=== PATIENT | male | born 1970 | race Caucasian/White ===

== ENCOUNTER 2018-09-09 19:09 | Emergency (ER) | payer MEDICAID ==
[~2018-09-09] VITALS: Ht 167.6 cm; Wt 66.0 kg
[~2018-09-09 19:09] MED LIST: CRUTCH USE; OXYACE5T; OXYACE5T PO
== END 2018-09-09 20:11 | disposition left against medical advice (07) ==
LOC: ER 19:09
DX: Z53.21 Procedure and treatment not carried out due to patient leaving prior to being seen by health care provider (principal); S71.151A Open bite, right thigh, initial encounter

== ENCOUNTER 2020-08-06 02:27 | Emergency (ER) | payer OTHER ==
[~2020-08-06] VITALS: Ht 175.3 cm; Wt 79.4 kg
[~2020-08-06 02:27] MED LIST changes: +Bactrim Ds Tab1 EACH PO; +Keflex500 MG PO
== END 2020-08-06 03:50 | disposition home or self-care (01) ==
LOC: ER 02:27
DX: S60.212A Contusion of left wrist, initial encounter (principal); S09.90XA Unspecified injury of head, initial encounter; F17.200 Nicotine dependence, unspecified, uncomplicated; W27.8XXA Contact with other nonpowered hand tool, initial encounter
CPT/HCPCS: 29125; 70450; 72125; 73030; 73110; 99284-25; A9270; L3917

== ENCOUNTER → 2020-12-09 | Outpatient (CLI) | payer OTHER | LOC: LAB SHORT 18:15 → LAB 18:15 | DX: L02.419 Cutaneous abscess of limb, unspecified (principal) | CPT/HCPCS: 87070; 87075; 87205 ==

== ENCOUNTER → 2020-12-15 | Outpatient (CLI) | payer OTHER | END | disposition home or self-care (01) | LOC: LAB SHORT 18:26 → LAB 18:26 | DX: L02.413 Cutaneous abscess of right upper limb (principal) | CPT/HCPCS: 87070; 87075; 87205 ==

== ENCOUNTER → 2021-05-13 | Outpatient (CLI) | payer OTHER | LOC: LAB 13:17 → LAB SHORT 13:17 | DX: L02.414 Cutaneous abscess of left upper limb (principal) | CPT/HCPCS: 87070; 87075; 87205 ==

== ENCOUNTER → 2021-10-06 | Outpatient (CLI) | payer OTHER | END | disposition home or self-care (01) | LOC: LAB SHORT 10:24 → LAB 10:24 | DX: L02.414 Cutaneous abscess of left upper limb (principal); L03.114 Cellulitis of left upper limb | CPT/HCPCS: 87070; 87075; 87205 ==

== ENCOUNTER 2023-09-12 22:15 | Inpatient (IN) | payer OTHER ==
[~2023-09-12] VITALS: Ht 160 cm; Wt 81.5 kg
[2023-09-13] MEDS ORDERED: Ketorolac Tromethamine 30mg Vial IV ONE (00:20)
[2023-09-13] MEDS ORDERED: Ketorolac Tromethamine 30mg Vial IM ONE (00:45)
[2023-09-13] MEDS ORDERED: LORazepam 2 MG/ML 1ML Injection IM ONE (01:05)
[2023-09-13 02:05] LABS: BASOPHILS ABSOLUTE AUTO 0.06 K/mm3 (0.00-0.23); BASOPHILS PERCENT AUTO 1 % (0-2); EOSINOPHILS ABSOLUTE AUTO 0.01 K/mm3 (0.00-0.68); EOSINOPHILS PERCENT AUTO 0 % (0-6); Hematocrit 41.8 % (37.0-53.0); IMMATURE GRAN ABSOLUTE AUTO 0.08 K/mm3 (0.00-0.10); IMMATURE GRAN PERCENT AUTO 1 % (0-1); LYMPHOCYTES ABSOLUTE AUTO 0.86 K/mm3 (0.84-5.20); LYMPHOCYTES PERCENT AUTO 7 % (21-46); MONOCYTES ABSOLUTE AUTO 0.39 K/mm3 (0.16-1.47); MONOCYTES PERCENT AUTO 3 % (4-13); Mean Corpuscular HGB 28.4 pg (26.0-34.0); Mean Corpuscular HGB Conc 33.5 g/dL (31.5-36.5); Mean Corpuscular Volume 85 fL (80-100); Mean Platelet Volume 9.4 fL (9.1-12.4); NEUTROPHILS ABSOLUTE AUTO 10.31 K/mm3 (1.96-9.15); NEUTROPHILS PERCENT AUTO 88 % (41-73); Platelet Count 424 K/mm3 (150-400); RDW Coefficient Variation 14.1 % (11.7-14.2); RDW Standard Deviation 43.7 fL (35.1-46.3); Red Blood Cell Count 4.93 M/mm3 (4.30-5.90); White Blood Cell Count 11.71 K/mm3 (4.00-11.30)
[2023-09-13 02:15] LABS: Albumin, Blood 3.5 g/dL (3.4-5.0); Albumin/Globulin Ratio 0.9 (0.8-1.8); Bilirubin, Total 0.3 mg/dL (0.1-1.0); Bun/Creatinine Ratio 31.3 (12.0-20.0); Calcium, Blood 9.2 mg/dL (8.5-10.1); Creatinine, Blood 0.7 mg/dL (0.60-1.20); Potassium, Blood 3.6 mmol/L (3.5-5.5); Total Protein, Blood 7.5 g/dL (6.4-8.2)
[2023-09-13] MEDS ORDERED: Haloperidol Lactate Inj. 5 MG/ML Injection IM ONE (02:40)
[2023-09-13] MEDS ORDERED: CefTRIAXone Sodium 1,000 MG in NS 50 ML IV ONE (05:20)
[2023-09-13] MEDS ORDERED: NS 1,000 ML IV SCH ×2 (05:20)
[2023-09-13] MEDS ORDERED: HYDROmorphone HCl/Pf 1MG SYR IV ONE (05:20)
[2023-09-13] MEDS ORDERED: Naloxone HCl 0.4MG / ML 1ML Vial IV PRN (06:20)
[2023-09-13] MEDS ORDERED: OxyCODONE HCL 5 MG TAB PO PRN (06:25)
[2023-09-13] MEDS ORDERED: Acetaminophen 325 MG TABLET PO PRN (06:25)
[2023-09-13] MEDS ORDERED: Ondansetron HCl 2 MG / ML 2ML Vial IV PRN (06:25)
[2023-09-13] MEDS ORDERED: MetroNIDAZOLE 500MG/NS 100 ml 100 ML IV SCH (06:30)
[2023-09-13] MEDS ORDERED: Lactated Ringer's 1,000 ML IV SCH (07:00)
[2023-09-13] MEDS ORDERED: Lactobacil 2-S.Thermo-Bifido 1 1 Cap PO SCH (09:00)
[2023-09-13] MEDS ORDERED: Docusate Sodium 100 MG Cap PO SCH (09:00)
[2023-09-13] MEDS ORDERED: Haloperidol Lactate Inj. 5 MG/ML Injection IV ONE (09:40)
[2023-09-13 09:57] LABS: Source, Urine Straight Cath
[2023-09-13 10:00] LABS: Appearance, Urine Clear (Clear); Bilirubin, Urine Neg (Neg); Blood, Urine 1+ (Neg); Color, Urine Yellow (P-Yellow); Glucose Qualitative, Urine Neg (Neg); Ketones, Urine 3+ (Neg); Leukocyte Esterase, Urine Neg (Neg); Nitrite, Urine Neg (Neg); Protein, Urine 1+ (Neg); Specific Gravity, Urine 1.015 (1.003-1.022); Urobilinogen, Urine 1+ (Normal); pH, Urine 6.5 (5.0-8.0)
[2023-09-13 10:06] LABS: Bacteria Rare /hpf; Mucus Light (0-Heavy); Squamous Epithelial Cells Rare /hpf (Few); White Blood Cells, Urine 0-2 /hpf (0-5)
[2023-09-13 11:26] VITALS: BP 127/75
--- NOTE | 2023-09-13 11:41 | NUR ---
PT ARRIVED TO THE MEDICAL FLOOR FROM THE ER VIA GURNEY. THE PT IS MOSTLY NON VERBAL AT THIS TIME DOES PERIODICALLY ANSWER YES OR NO. THE IS ORIENTED TO THE ROOM CALL SYSTEM AND LAYOUT. PTS SKIN LOOKS CLEAR. PT APPEARS TO BE BREATHING EASILY
[2023-09-13 11:42] LABS: U Amphetamine Screen DETECTED; U Benzodiazapine Screen DETECTED; U Buprenorphine Screen DETECTED; U Cannabinoids Screen DETECTED; U Methamphetamine Screen DETECTED; U Opiates Screen DETECTED
[2023-09-13 11:43] LABS: U Barbituate Screen Not Detected; U Cocaine Screen Not Detected; U Methadone Screen Not Detected; U Oxycodone Screen Not Detected; U Phencyclidine Screen Not Detected
[2023-09-13 15:11] VITALS: BP 110/58
--- NOTE | 2023-09-13 18:06 | NUR ---
PT IS ALERT, ANSWERING SOME QUESTIONS, PT WAKENS, MOANS AND THRASHES IN THE BED, THEN FALLS BACK TO SLEEP, THE PT CONTINUES TO REPORT THAT HE IS VERY THIRSTY. THE PT HAS BEEN DRINKING LARGE VOLUMES OF WATER. THE PT MOANS IF HE IS IN PAIN, HOWEVER, WHEN ASKED HE DENIES PAIN. CALL LIGHT IN REACH, BED IN THE LOW POSITION, BED ALARM ON
[2023-09-13] MEDS ORDERED: Haloperidol Lactate Inj. 5 MG/ML Injection IM PRN (18:40)
[2023-09-13 20:49] VITALS: BP 120/71
[2023-09-13] MEDS ORDERED: Ketorolac Tromethamine 15mg Vial IV PRN (22:35)
[2023-09-14] MEDS ORDERED: NS 250 ML IV SCH (04:00)
--- NOTE | 2023-09-14 05:25 | NUR ---
SHIFT SUMMARY: PATIENT RESTLESS AND THRASHING LIMBS IN BED, WHEN QUESTIONED STATED, "I'M SO HOT". FAN POSITIONED TOWARD HIS FACE, ICE WATER GIVEN. PATIENT DRANK THREE LARGE CUPS OF ICE WATER TONIGHT. TWO DOSES OF TORADOL GIVEN. CONTINUES WITH IV ABX FLAGYL AND ROCEPHIN. SEEMS CONFUSED, BUT WILL ANSWER QUESTIONS CLEARLY AT TIMES, ONLY A FEW WORDS. LOTS OF BOWEL MOVEMENT DURING THIS SHIFT. IV ON RIGHT ARM, PATENT. RASH TO BRIEF AREA, NOT WORSENING. REMAINS INCONTINENT OF BLADDER AND BOWEL.
[2023-09-14 05:26] VITALS: BP 139/71
[2023-09-14] MEDS ORDERED: CefTRIAXone Sodium 1,000 MG in NS 100 ML IV SCH (06:00)
[2023-09-14 06:23] LABS: BASOPHILS ABSOLUTE AUTO 0.08 K/mm3 (0.00-0.23); BASOPHILS PERCENT AUTO 1 % (0-2); EOSINOPHILS ABSOLUTE AUTO 0.03 K/mm3 (0.00-0.68); EOSINOPHILS PERCENT AUTO 0 % (0-6); Hematocrit 43.2 % (37.0-53.0); Hemoglobin 14.8 g/dL (13.5-17.5); IMMATURE GRAN ABSOLUTE AUTO 0.04 K/mm3 (0.00-0.10); IMMATURE GRAN PERCENT AUTO 0 % (0-1); LYMPHOCYTES ABSOLUTE AUTO 2.06 K/mm3 (0.84-5.20); LYMPHOCYTES PERCENT AUTO 20 % (21-46); MONOCYTES ABSOLUTE AUTO 1.16 K/mm3 (0.16-1.47); MONOCYTES PERCENT AUTO 12 % (4-13); Mean Corpuscular HGB 28.6 pg (26.0-34.0); Mean Corpuscular HGB Conc 34.3 g/dL (31.5-36.5); Mean Corpuscular Volume 83 fL (80-100); Mean Platelet Volume 9.5 fL (9.1-12.4); NEUTROPHILS ABSOLUTE AUTO 6.72 K/mm3 (1.96-9.15); NEUTROPHILS PERCENT AUTO 67 % (41-73); Platelet Count 283 K/mm3 (150-400); RDW Coefficient Variation 13.7 % (11.7-14.2); RDW Standard Deviation 41.7 fL (35.1-46.3); Red Blood Cell Count 5.18 M/mm3 (4.30-5.90); White Blood Cell Count 10.09 K/mm3 (4.00-11.30)
[2023-09-14 06:30] LABS: International Normalized Ratio 1.07; Prothrombin Time Results 11.4 Sec (9.7-11.5)
[2023-09-14 06:40] LABS: Albumin/Globulin Ratio 0.9 (0.8-1.8); Bilirubin, Total 1.1 mg/dL (0.1-1.0); Bun/Creatinine Ratio 27.5 (12.0-20.0); Calcium, Blood 8.7 mg/dL (8.5-10.1); Creatinine, Blood 0.65 mg/dL (0.60-1.20); Globulin, Blood 3.4 g/dL (2.2-4.0); Magnesium, Blood 1.9 mg/dL (1.6-2.4); Potassium, Blood 3.6 mmol/L (3.5-5.5); Total Protein, Blood 6.4 g/dL (6.4-8.2)
[2023-09-14 07:38] VITALS: BP 123/69
[2023-09-14] MEDS ORDERED: OLANZapine 10 MG Vial IM PRN (14:50)
[2023-09-14] MEDS ORDERED: Bisacodyl 10 MG Supp PR PRN (15:00)
[2023-09-14] MEDS ORDERED: NS 250 ML IV PRN (16:15)
[2023-09-14 16:57] VITALS: BP 147/95
--- NOTE | 2023-09-14 18:29 | NUR ---
SHIFT SUMMARY: PT ALERT, ORIENTED TO SELF AND SITUATION; RESTLESS AND COOPERATIVE WITH CARE. MEDICATED FOR PAIN AND ANXIETY PER EMAR; AFTER ZYPREXA IM, PT WAS ABLE TO REST MUCH MORE COMFORTABLY. TELE IN PLACE; PER TELE MONITOR, PT EXHIBITED [place] RHYTHM, WHICH SPONTANEOUSLY CONVERTED TO SINUS RHYTHM. PT CONTINUES INCONTINENT OF BOWEL AND BLADDER; SUPPOSITORY GIVEN FOR POSSIBLE IMPACTED STOOL; AWAITING RESULTS. PT HAS HAD GOOD ORAL INTAKE THIS SHIFT; DIET ADVANCED TO FULL LIQUID AT DINNER; PT TOLERATED WELL. PT CONTINUES TO CALL OUT FOR PHONE TO CALL MOTHER. CT OF HEAD COMPLETED THIS SHIFT; NO ACUTE INTRACRANIAL ABNORMALITY DETECTED. IV ABX CONTINUING. WCTM.
[2023-09-14 19:16] VITALS: BP 138/53
[2023-09-15 04:04] VITALS: BP 131/63
--- NOTE | 2023-09-15 04:46 | NUR ---
SHIFT SUMMARY PATIENT HAD NO ACUTE CHANGES. MOSTLY SOMNOLENT T/O SHIFT. AXO X2 AND BEDREST. MOANS ON/OFF. PIV REMAINS INTACT. IV ABX INFUSED. NO S/SX OF CHEST PAIN, SOB, AND N/V. VSS/AFEBRILE. NO AGITATION OBSERVED. CALL LIGHT IN REACH. BED IN LOWEST POSITION. WILL CONTINUE TO MONITOR UNTIL DAY SHIFT NURSE ASSUMES CARE.
[2023-09-15 07:10] VITALS: BP 148/75
--- NOTE | 2023-09-15 12:21 | NUR ---
REPORT RECEIVED VERIFIED PT YELLING OUT BUT QUICKLY FALLING ASLEEP. VSS WITH A LITTLE TEMP AND TYLENOL GIVEN. PT CALLED FAMILY AND WANTS TO GO HOME. DR WEINER AWARE AND GAVE DC ORDER FOR PT. PT WOULD NOT WAIT FOR DC ORDERS SO LEFT WITH FAMILY ANYWAYS. IV DCED TELE DCED PT TAKEN BY [facility] VIA WHEEL CHAIR.
== END 2023-09-15 12:10 | disposition left against medical advice (07) | DRG 444 ==
LOC: ER 22:15 → MEDS 09-13 06:19
PROVIDERS: Emergency Medicine; ADMIT Student in an Organized Health Care Education/Training Program
DX: K80.20 Calculus of gallbladder without cholecystitis without obstruction (principal); G92.8 Other toxic encephalopathy; K52.89 Other specified noninfective gastroenteritis and colitis; I10 Essential (primary) hypertension; M41.9 Scoliosis, unspecified; G89.4 Chronic pain syndrome; T43.625A Adverse effect of amphetamines, initial encounter; T42.4X5A Adverse effect of benzodiazepines, initial encounter; T40.2X5A Adverse effect of other opioids, initial encounter; F17.210 Nicotine dependence, cigarettes, uncomplicated; E86.0 Dehydration; K59.00 Constipation, unspecified; Z53.29 Procedure and treatment not carried out because of patient's decision for other reasons; Z78.1 Physical restraint status
CPT/HCPCS: 36415; 70450; 74177; 76705; 80053; 81001; 82947; 83605; 83735; 85025; 85610; 96365-59; 96372-59; 96375; 99285-25; A9270; J0696; J1170; J1630; J1885; J2060; J7030; J7050; J7120; Q9967

== ENCOUNTER 2024-11-24 20:45 | Emergency (ER) | payer MEDICARE, OTHER ==
[~2024-11-24] VITALS: Ht 172.7 cm; Wt 90.7 kg
[2024-11-24 20:51] VITALS: BP 146/84
[2024-11-24] MEDS ORDERED: Polyethylene Glycol 3350 17 gm PO ONE (22:40)
== END 2024-11-24 23:02 | disposition home or self-care (01) ==
LOC: ER 20:45
DX: Z46.6 Encounter for fitting and adjustment of urinary device (principal); F17.210 Nicotine dependence, cigarettes, uncomplicated
CPT/HCPCS: 99283; A9270

== ENCOUNTER 2024-12-21 05:03 | Emergency (ER) | payer OTHER, MEDICARE ==
[~2024-12-21] VITALS: Ht 172.7 cm; Wt 90.7 kg
[2024-12-21 05:47] LABS: BASOPHILS ABSOLUTE AUTO 0.09 K/mm3 (0.00-0.23); BASOPHILS PERCENT AUTO 1 % (0-2); EOSINOPHILS ABSOLUTE AUTO 0.28 K/mm3 (0.00-0.68); EOSINOPHILS PERCENT AUTO 4 % (0-6); Hematocrit 38.4 % (37.0-53.0); Hemoglobin 12.6 g/dL (13.5-17.5); IMMATURE GRAN ABSOLUTE AUTO 0.02 K/mm3 (0.00-0.10); IMMATURE GRAN PERCENT AUTO 0 % (0-1); LYMPHOCYTES ABSOLUTE AUTO 1.76 K/mm3 (0.84-5.20); LYMPHOCYTES PERCENT AUTO 24 % (21-46); MONOCYTES ABSOLUTE AUTO 0.76 K/mm3 (0.16-1.47); MONOCYTES PERCENT AUTO 10 % (4-13); Mean Corpuscular HGB Conc 32.8 g/dL (31.5-36.5); Mean Corpuscular Volume 87 fL (80-100); NEUTROPHILS ABSOLUTE AUTO 4.41 K/mm3 (1.96-9.15); NEUTROPHILS PERCENT AUTO 60 % (41-73); NRBC ABSOLUTE 0.00 K/mm3 (0.00-0.02); NRBC Auto 0.0 /100 WBC (0.0-0.2); Platelet Count 299 K/mm3 (150-400); RDW Coefficient Variation 15.7 % (11.7-14.2); RDW Standard Deviation 50.1 fL (35.1-46.3)
[2024-12-21 06:21] LABS: Alanine Aminotransfer (ALT/SGP 28.0 U/L (12-78); Albumin, Blood 3.0 g/dL (3.4-5.0); Albumin/Globulin Ratio 0.7 (0.8-1.8); Anion Gap 6.0 mmol/L (3-11); Aspartate Aminotrans (AST/SGOT 17.0 U/L (12-37); Bilirubin, Total 0.5 mg/dL (0.1-1.0); Blood Urea Nitrogen 12.0 mg/dL (8-24); CO2, Blood 29.0 mmol/L (21-32); Calcium, Blood 8.5 mg/dL (8.5-10.1); Chloride, Blood 106.0 mmol/L (98-108); Creatinine, Blood 0.76 mg/dL (0.60-1.20); Globulin, Blood 4.3 g/dL (2.2-4.0); Glucose, Blood 88.0 mg/dL (70-99); Potassium, Blood 3.9 mmol/L (3.5-5.5); Sodium, Blood 137.0 mmol/L (136-145); Total Protein, Blood 7.3 g/dL (6.4-8.2)
[2024-12-21 06:25] LABS: Source, Urine Foley catheter
[2024-12-21 06:34] LABS: Bilirubin, Urine Neg (Neg); Color, Urine Yellow (P-Yellow); Glucose Qualitative, Urine Neg (Neg); Ketones, Urine Neg (Neg); Leukocyte Esterase, Urine 1+ (Neg); Protein, Urine Neg (Neg); Specific Gravity, Urine 1.015 (1.003-1.022); Urobilinogen, Urine NORM (Normal)
[2024-12-21] MEDS ORDERED: Ketorolac Tromethamine 30mg Vial IV ONE (06:40)
[2024-12-21] MEDS ORDERED: Trimethoprim/Sulfamethoxazole DS Tab PO ONE (09:25)
[2024-12-21] MEDS ORDERED: SULTRIDS PO (09:27)
[2024-12-21 09:54] VITALS: BP 130/87
== END 2024-12-21 09:55 | disposition home or self-care (01) ==
LOC: ER 05:03
PROVIDERS: Emergency Medicine
DX: S92.522A Displaced fracture of middle phalanx of left lesser toe(s), initial encounter for closed fracture (principal); T83.511A Infection and inflammatory reaction due to indwelling urethral catheter, initial encounter; N12 Tubulo-interstitial nephritis, not specified as acute or chronic; N39.0 Urinary tract infection, site not specified; F17.210 Nicotine dependence, cigarettes, uncomplicated; V86.56XA Driver of dirt bike or motor/cross bike injured in nontraffic accident, initial encounter
CPT/HCPCS: 73660; 76770; 80053; 81001; 83690; 85025; 87077; 87086; 87186; 99284-25; A9270

== ENCOUNTER 2025-01-30 13:50 | Emergency (ER) | payer MEDICARE ==
[~2025-01-30] VITALS: Ht 175.3 cm; Wt 90.7 kg
[~2025-01-30 13:50] MED LIST changes: +SULTRIDS PO
[2025-01-30 14:10] VITALS: BP 142/91
[2025-01-30 15:16] LABS: Source, Urine Foley catheter
[2025-01-30 15:35] LABS: Bilirubin, Urine Neg (Neg); Glucose Qualitative, Urine Neg (Neg); Ketones, Urine Neg (Neg); Leukocyte Esterase, Urine Neg (Neg); Protein, Urine Neg (Neg); Specific Gravity, Urine 1.010 (1.003-1.022); Urobilinogen, Urine NORM (Normal)
[2025-01-30 15:42] LABS: BASOPHILS ABSOLUTE AUTO 0.09 K/mm3 (0.00-0.23); BASOPHILS PERCENT AUTO 1 % (0-2); EOSINOPHILS ABSOLUTE AUTO 0.40 K/mm3 (0.00-0.68); EOSINOPHILS PERCENT AUTO 5 % (0-6); Hematocrit 33.9 % (37.0-53.0); Hemoglobin 11.1 g/dL (13.5-17.5); IMMATURE GRAN ABSOLUTE AUTO 0.02 K/mm3 (0.00-0.10); IMMATURE GRAN PERCENT AUTO 0 % (0-1); LYMPHOCYTES ABSOLUTE AUTO 1.34 K/mm3 (0.84-5.20); LYMPHOCYTES PERCENT AUTO 18 % (21-46); MONOCYTES ABSOLUTE AUTO 0.76 K/mm3 (0.16-1.47); MONOCYTES PERCENT AUTO 10 % (4-13); Mean Corpuscular HGB Conc 32.7 g/dL (31.5-36.5); Mean Corpuscular Volume 89 fL (80-100); NEUTROPHILS ABSOLUTE AUTO 5.01 K/mm3 (1.96-9.15); NEUTROPHILS PERCENT AUTO 66 % (41-73); NRBC ABSOLUTE 0.00 K/mm3 (0.00-0.02); NRBC Auto 0.0 /100 WBC (0.0-0.2); Platelet Count 340 K/mm3 (150-400); RDW Coefficient Variation 15.0 % (11.7-14.2); RDW Standard Deviation 49.1 fL (35.1-46.3)
[2025-01-30 15:56] LABS: Alanine Aminotransfer (ALT/SGP 31.0 U/L (12-78); Albumin, Blood 3.4 g/dL (3.4-5.0); Albumin/Globulin Ratio 0.9 (0.8-1.8); Anion Gap 9.0 mmol/L (3-11); Aspartate Aminotrans (AST/SGOT 20.0 U/L (12-37); Bilirubin, Total 0.5 mg/dL (0.1-1.0); Blood Urea Nitrogen 19.0 mg/dL (8-24); CO2, Blood 29.0 mmol/L (21-32); Calcium, Blood 8.7 mg/dL (8.5-10.1); Chloride, Blood 108.0 mmol/L (98-108); Creatinine, Blood 2.29 mg/dL (0.60-1.20); Globulin, Blood 3.9 g/dL (2.2-4.0); Glucose, Blood 104.0 mg/dL (70-99); Potassium, Blood 3.9 mmol/L (3.5-5.5); Sodium, Blood 142.0 mmol/L (136-145); Total Protein, Blood 7.3 g/dL (6.4-8.2)
[2025-01-30 15:59] LABS: Color, Urine Pale Yellow (P-Yellow)
[2025-01-30] MEDS ORDERED: Flomax0.4 MG PO (16:20)
== END 2025-01-30 17:06 | disposition home or self-care (01) ==
LOC: ER 13:50
PROVIDERS: Emergency Medicine
DX: R33.9 Retention of urine, unspecified (principal); I10 Essential (primary) hypertension; F17.210 Nicotine dependence, cigarettes, uncomplicated; Z79.899 Other long term (current) drug therapy
CPT/HCPCS: 51702; 51798; 80053; 81003; 85025

== ENCOUNTER 2025-03-29 18:44 | Inpatient (IN) | payer MEDICARE ==
[~2025-03-29] VITALS: Ht 172.7 cm; Wt 85.6 kg
[~2025-03-29 18:44] MED LIST changes: -DOXY100 PO; -METO25 PO; -VISBIOME 112.51 EACH PO
[2025-03-29 19:45] LABS: BASOPHILS ABSOLUTE AUTO 0.05 K/mm3 (0.00-0.23); BASOPHILS PERCENT AUTO 0 % (0-2); EOSINOPHILS ABSOLUTE AUTO 0.03 K/mm3 (0.00-0.68); EOSINOPHILS PERCENT AUTO 0 % (0-6); Hematocrit 32.7 % (37.0-53.0); Hemoglobin 10.8 g/dL (13.5-17.5); IMMATURE GRAN ABSOLUTE AUTO 0.22 K/mm3 (0.00-0.10); IMMATURE GRAN PERCENT AUTO 1 % (0-1); LYMPHOCYTES ABSOLUTE AUTO 0.84 K/mm3 (0.84-5.20); LYMPHOCYTES PERCENT AUTO 5 % (21-46); MONOCYTES ABSOLUTE AUTO 1.16 K/mm3 (0.16-1.47); MONOCYTES PERCENT AUTO 6 % (4-13); Mean Corpuscular HGB Conc 33.0 g/dL (31.5-36.5); Mean Corpuscular Volume 83 fL (80-100); NEUTROPHILS ABSOLUTE AUTO 16.23 K/mm3 (1.96-9.15); NEUTROPHILS PERCENT AUTO 88 % (41-73); NRBC ABSOLUTE 0.00 K/mm3 (0.00-0.02); NRBC Auto 0.0 /100 WBC (0.0-0.2); Platelet Count 591 K/mm3 (150-400); RDW Coefficient Variation 16.1 % (11.7-14.2); RDW Standard Deviation 48.9 fL (35.1-46.3)
[2025-03-29 20:16] LABS: Source, Urine Clean Catch
[2025-03-29 20:18] LABS: Bilirubin, Urine Neg (Neg); Color, Urine Yellow (P-Yellow); Glucose Qualitative, Urine Neg (Neg); Ketones, Urine Neg (Neg); Leukocyte Esterase, Urine 3+ (Neg); Protein, Urine 3+ (Neg); Specific Gravity, Urine 1.015 (1.003-1.022); Urobilinogen, Urine NORM (Normal)
[2025-03-29 20:33] LABS: Alanine Aminotransfer (ALT/SGP 25 U/L (12-78); Albumin, Blood 2.2 g/dL (3.4-5.0); Albumin/Globulin Ratio 0.4 (0.8-1.8); Anion Gap Unable to Calculate mmol/L (3-11); Aspartate Aminotrans (AST/SGOT 14 U/L (12-37); Bilirubin, Total 0.6 mg/dL (0.1-1.0); Blood Urea Nitrogen 59 mg/dL (8-24); CO2, Blood 36 mmol/L (21-32); Calcium, Blood 8.4 mg/dL (8.5-10.1); Chloride, Blood 103 mmol/L (98-108); Creatinine, Blood 3.53 mg/dL (0.60-1.20); Globulin, Blood 6.1 g/dL (2.2-4.0); Glucose, Blood 119 mg/dL (70-99); Potassium, Blood 3.9 mmol/L (3.5-5.5); Sodium, Blood 133 mmol/L (136-145); Total Protein, Blood 8.3 g/dL (6.4-8.2)
[2025-03-29 20:38] LABS: White Blood Cells, Urine TNTC /hpf (0-5)
[2025-03-29 20:39] LABS: Red Blood Cells, Urine 25-50 /hpf (0-2)
[2025-03-29] MEDS ORDERED: CefTRIAXone Sodium 1,000 MG in NS 100 ML IV ONE (20:45)
[2025-03-29] MEDS ORDERED: Lidocaine 2% Jelly Uro-Jet UR ONE (20:45)
[2025-03-29] MEDS ORDERED: OxyCODONE 5 mg/Acetamin 325 mg TABLET PO PRN (21:30)
[2025-03-29] MEDS ORDERED: FLU VACC TS2025-26(6MOS UP)/PF 45 MCG/0.5 ML SYRINGE IM SCH (21:35)
[2025-03-29 21:39] LABS: Magnesium, Blood 2.7 mg/dL (1.6-2.4)
[2025-03-29] MEDS ORDERED: LORazepam 2 MG/ML 1ML Injection IV PRN (21:40)
[2025-03-29 23:30] VITALS: BP 113/65
[2025-03-29 23:35] LABS: pH Blood Venous 7.48 (7.34-7.37)
[2025-03-30 00:04] LABS: U Amphetamine Screen DETECTED; U Barbiturate Screen Not Detected; U Benzodiazapine Screen Not Detected; U Buprenorphine Screen Not Detected; U Cannabinoids Screen Not Detected; U Cocaine Screen Not Detected; U Methadone Screen Not Detected; U Methamphetamine Screen DETECTED; U Opiates Screen Not Detected; U Oxycodone Screen Not Detected; U Phencyclidine Screen Not Detected
[2025-03-30 04:00] VITALS: BP 120/64
[2025-03-30 04:36] LABS: BASOPHILS ABSOLUTE AUTO 0.06 K/mm3 (0.00-0.23); BASOPHILS PERCENT AUTO 0 % (0-2); EOSINOPHILS ABSOLUTE AUTO 0.11 K/mm3 (0.00-0.68); EOSINOPHILS PERCENT AUTO 1 % (0-6); Hematocrit 27.0 % (37.0-53.0); Hemoglobin 8.8 g/dL (13.5-17.5); IMMATURE GRAN ABSOLUTE AUTO 0.21 K/mm3 (0.00-0.10); IMMATURE GRAN PERCENT AUTO 1 % (0-1); LYMPHOCYTES ABSOLUTE AUTO 1.74 K/mm3 (0.84-5.20); LYMPHOCYTES PERCENT AUTO 11 % (21-46); MONOCYTES ABSOLUTE AUTO 1.68 K/mm3 (0.16-1.47); MONOCYTES PERCENT AUTO 10 % (4-13); Mean Corpuscular HGB Conc 32.6 g/dL (31.5-36.5); Mean Corpuscular Volume 84 fL (80-100); NEUTROPHILS ABSOLUTE AUTO 12.66 K/mm3 (1.96-9.15); NEUTROPHILS PERCENT AUTO 77 % (41-73); NRBC ABSOLUTE 0.00 K/mm3 (0.00-0.02); NRBC Auto 0.0 /100 WBC (0.0-0.2); Platelet Count 415 K/mm3 (150-400); RDW Coefficient Variation 16.1 % (11.7-14.2); RDW Standard Deviation 49.5 fL (35.1-46.3)
[2025-03-30 04:57] LABS: Anion Gap 10.0 mmol/L (3-11); Blood Urea Nitrogen 39.0 mg/dL (8-24); CO2, Blood 24.0 mmol/L (21-32); Calcium, Blood 7.8 mg/dL (8.5-10.1); Chloride, Blood 106.0 mmol/L (98-108); Creatinine, Blood 3.03 mg/dL (0.60-1.20); Glucose, Blood 110.0 mg/dL (70-99); Magnesium, Blood 2.5 mg/dL (1.6-2.4); Potassium, Blood 3.7 mmol/L (3.5-5.5); Sodium, Blood 136.0 mmol/L (136-145)
[2025-03-30 07:48] VITALS: BP 126/69
[2025-03-30] MEDS ORDERED: Enoxaparin 30 MG/0.3 ML SYR SC SCH (09:00)
[2025-03-30] MEDS ORDERED: Lactobacil 2-S.Thermo-Bifido 1 1 Cap PO SCH (09:00)
--- NOTE | 2025-03-30 11:18 | NUR ---
AM NOTES; THIS MORNING PT WAS SOAKING WET FROM CATHETER LEAK. PT WAS OFFERED TO GET IN THE SHOWER, PT REPORTS THAT IT WAS SLIGHTLY CLAMPED LAST NIGHT ITS CAUSING PAIN DUE TO FAST URINARY DRAIN, CATHETER TUBING WAS CHECKED AND WAS UNCLAMPED, WHEN PT GOT BACK IN BED AFTER SHOWER PT WAS STILL LEAKING, PT WAS BLADDER SCANNED AND SHOWED 475MLS URINE IN THE BLADDER. CATHETER WAS IRRIGATED WITH 10 NS AND URINE ABLE TO DRAIN AGAIN. NO OTHER ISSUES AT THSI TIME. VITALS HAS BEEN STABLE. PT HAS AMBUALTED VIA WALKER SBA TO THE BATHROOM. CALLS APPROPRIATELY. WILL CONTINUE TO MONITOR
[2025-03-30 11:42] VITALS: BP 119/68
[2025-03-30 15:20] VITALS: BP 111/64
--- NOTE | 2025-03-30 18:26 | NUR ---
PT SUMMARY; SEE PREVIOUS NOTE. NO CURRENT ISSUES WITH PARKER, PT HAS BEEN DRINKING WATER AND JUICE OFTEN PT AHD ALMOST 5L URINE OUT FOR THE SHIFT, MD AWARE. PT POSSIBLY WIHTDRAWING FROM METH, PT OCCASIONALLY RESTLESS IN BED, CONSISTENTLY ASKING FOR SNACKS AND HAS BEEN NAPPING IN BED MOST OF THE SHIFT. PT STARTED ON IV FLUIDS AT 100MLS/HR WELL. ULTRASOUND OF RIGHT LEG CURRENTLY BEING DONE. PAIN MEDS PER EMAR. VITALS HAS BEEN STABLE. AFEBRILE. LAB CALLED FOR GRAM NEGATIVE BACILLI GROWING ON BLOOD CULTURES, MD AWARE NO NEW ORDERS AT THIS TIME. PT TO CONTINUE ON CURRENT IV ABO. PT HAS BEEN COOEPRATIVE WITH CARES. PLEASANT AND COHERENT. NO OTHER ISSUES REPORTED WILL REPORT TO ONOCMING SHIFT
[2025-03-30 20:14] VITALS: BP 136/87
[2025-03-30] MEDS ORDERED: CefTRIAXone Sodium 1,000 MG in NS 100 ML IV SCH (21:00)
[2025-03-30 23:56] VITALS: BP 136/77
[2025-03-31 03:43] LABS: BASOPHILS ABSOLUTE AUTO 0.08 K/mm3 (0.00-0.23); BASOPHILS PERCENT AUTO 1 % (0-2); EOSINOPHILS ABSOLUTE AUTO 0.14 K/mm3 (0.00-0.68); EOSINOPHILS PERCENT AUTO 1 % (0-6); Hematocrit 31.1 % (37.0-53.0); Hemoglobin 10.5 g/dL (13.5-17.5); IMMATURE GRAN ABSOLUTE AUTO 0.32 K/mm3 (0.00-0.10); IMMATURE GRAN PERCENT AUTO 2 % (0-1); LYMPHOCYTES ABSOLUTE AUTO 1.81 K/mm3 (0.84-5.20); LYMPHOCYTES PERCENT AUTO 11 % (21-46); MONOCYTES ABSOLUTE AUTO 1.26 K/mm3 (0.16-1.47); MONOCYTES PERCENT AUTO 7 % (4-13); Mean Corpuscular HGB Conc 33.8 g/dL (31.5-36.5); Mean Corpuscular Volume 84 fL (80-100); NEUTROPHILS ABSOLUTE AUTO 13.48 K/mm3 (1.96-9.15); NEUTROPHILS PERCENT AUTO 79 % (41-73); NRBC ABSOLUTE 0.00 K/mm3 (0.00-0.02); NRBC Auto 0.0 /100 WBC (0.0-0.2); Platelet Count 443 K/mm3 (150-400); RDW Coefficient Variation 15.9 % (11.7-14.2); RDW Standard Deviation 48.5 fL (35.1-46.3)
[2025-03-31 04:27] LABS: Anion Gap 10.0 mmol/L (3-11); Blood Urea Nitrogen 42.0 mg/dL (8-24); CO2, Blood 27.0 mmol/L (21-32); Calcium, Blood 7.7 mg/dL (8.5-10.1); Chloride, Blood 106.0 mmol/L (98-108); Creatinine, Blood 2.21 mg/dL (0.60-1.20); Glucose, Blood 108.0 mg/dL (70-99); Potassium, Blood 3.7 mmol/L (3.5-5.5); Sodium, Blood 139.0 mmol/L (136-145)
[2025-03-31 04:43] VITALS: BP 149/104
--- NOTE | 2025-03-31 06:38 | NUR ---
PT AOX4, ABLE TO MAKE NEEDS KNOWN. PT INTERMITTENTLY USES CALL LIGHT. PT IS 1 ASSIST WITH FWW. PT FREQUENTLY STANDS AT BEDSIDE D/T BLADDER PAIN. PARKER IS IN PLACE AND DRAINING WELL. IV FLUIDS INFUSING W/O PROBLEM. PT FREQUENTLY C/O BLADDER PAIN/SPASM THROUGHOUT THE SHIFT. PT WAS BLADDER SCANNED AND NO RETENTION PRESENT WITH PARKER. URINE IS PINKED-TINGED YELLOW WITH LARGE MUCUS/SEDIMENT CLOTS PRESENTS. NO GROSS HEMATURIA OR BLOOD CLOTS SEEN. PT REMAINS AFEBRILE, VITAL SIGNS WNL. BED ALARM IN PLACE. BED IN LOWEST POSITION, BRAKES ON, UPPER SIDE RAILS UP. PT TAKES PO INTAKE WELL. PT HAS HAD VERY GOOD URINARY OUTPUT.
[2025-03-31 07:49] VITALS: BP 121/78
[2025-03-31 08:33] VITALS: BP 121/78
[2025-03-31 11:05] VITALS: BP 135/87
[2025-03-31 15:44] VITALS: BP 139/87
[2025-03-31] MEDS ORDERED: Piperacillin/Tazobactam Sod 3.375 GM in NS 100 ML IV SCH (16:00)
[2025-03-31] MEDS ORDERED: Metoprolol Tartrate 1 MG/ML 5 ML VIAL IV PRN (16:20)
--- NOTE | 2025-03-31 16:36 | NUR ---
SHIFT SUMMARY PATIENT HAS BEEN AOX4, HOWEVER DROWSY T/O SHIFT. SBP HAS BEEN 120-140. HR WAS SINUS TACH 100-115, 130-140 IN LATE AFTERNOON. PROVIDER NOTIFIED. NEW ORDERS UPDATED BY PROVIDER, HR BACK IN 110'S WITHOUT MEDICATION. PARKER CATHETER IN PLACE DRAINING TO GRAVITY WITH ADEQUATE OUTPUT. O2 SATS HAVE BEEN >95% ON ROOM AIR. PATIENT WILL STAND 1 PERSON ASSIST WITH FWW TO HELP WITH BLADDER SPASMS. PT RESTING COMFORTABLY IN BED IN LOWEST POSITION WITH CALL LIGHT IN REACH.
[2025-03-31 20:05] VITALS: BP 127/87
--- NOTE | 2025-03-31 20:42 | NUR ---
ASSUMPTION OF CARE ASSUMED CARE OF PT AT APPROXIMATELY 1900. PT LYING IN BED. C/O PELVIC PAIN. PRN PAIN MEDICATION ADMINISTERED AT APPROXIMATELY 1830 BY DAY SHIFT RN. PT ADMINISTERED SCHEDULED MEDS PER EMAR. PT AOX4. ABLE TO MAKE ALL NEEDS KNOWN. CALL LIGHT WITHIN REACH AND PT CALLS APPROPRIATELY FOR ASSISTANCE WHEN NEEDED. ADEQUATE OUTPUT VIA PARKER CATHETER TO GRAVITY, SOME SEDIMENT PRESENT. CLEAR, LIGHT YELLOW URINE. NO C/O CHEST PAIN OR PRESSURE. NO C/O SOB.
[2025-04-01] VITALS (7 sets, daily range): BP systolic 135–158; BP diastolic 87–107
[2025-04-01 03:43] LABS: BASOPHILS ABSOLUTE AUTO 0.09 K/mm3 (0.00-0.23); BASOPHILS PERCENT AUTO 1 % (0-2); EOSINOPHILS ABSOLUTE AUTO 0.27 K/mm3 (0.00-0.68); EOSINOPHILS PERCENT AUTO 2 % (0-6); Hematocrit 28.6 % (37.0-53.0); Hemoglobin 9.7 g/dL (13.5-17.5); IMMATURE GRAN ABSOLUTE AUTO 0.25 K/mm3 (0.00-0.10); IMMATURE GRAN PERCENT AUTO 2 % (0-1); LYMPHOCYTES ABSOLUTE AUTO 1.71 K/mm3 (0.84-5.20); LYMPHOCYTES PERCENT AUTO 11 % (21-46); MONOCYTES ABSOLUTE AUTO 0.97 K/mm3 (0.16-1.47); MONOCYTES PERCENT AUTO 6 % (4-13); Mean Corpuscular HGB Conc 33.9 g/dL (31.5-36.5); Mean Corpuscular Volume 83 fL (80-100); NEUTROPHILS ABSOLUTE AUTO 12.14 K/mm3 (1.96-9.15); NEUTROPHILS PERCENT AUTO 79 % (41-73); NRBC ABSOLUTE 0.00 K/mm3 (0.00-0.02); NRBC Auto 0.0 /100 WBC (0.0-0.2); Platelet Count 464 K/mm3 (150-400); RDW Coefficient Variation 15.9 % (11.7-14.2); RDW Standard Deviation 48.2 fL (35.1-46.3)
[2025-04-01 04:04] LABS: Anion Gap 8.0 mmol/L (3-11); Blood Urea Nitrogen 20.0 mg/dL (8-24); CO2, Blood 29.0 mmol/L (21-32); Calcium, Blood 8.6 mg/dL (8.5-10.1); Chloride, Blood 106.0 mmol/L (98-108); Creatinine, Blood 1.41 mg/dL (0.60-1.20); Glucose, Blood 98.0 mg/dL (70-99); Potassium, Blood 3.2 mmol/L (3.5-5.5); Sodium, Blood 140.0 mmol/L (136-145)
[2025-04-01] MEDS ORDERED: NS 500 ML IV ONE (05:01)
--- NOTE | 2025-04-01 05:55 | NUR ---
SHIFT SUMMARY PT RESTING IN BED. C/O CONTINUED BLADDER PAIN THIS SHIFT. PT STATING THAT CURRENT PAIN MEDICATION IS NOT HELPFUL HOWEVER HE HAS BEEN VERY DROWSY MOST OF THE SHIFT. PT GIVEN PRN ATIVAN X1 FOR ANXIETY THIS SHIFT. PT SLEPT FOR MAJORITY OF SHIFT. POTASSIUM 3.2 MD HARP NOTIFIED, 40MEQ IV POTASSIUM X1 GIVEN. PT C/O BURNING DURING INFUSION. PT AOX4, ABLE TO MAKE ALL NEEDS KNOWN. CALL LIGHT WITHIN REACH AND PT CALLS FOR ASSISTANCE APPROPRIATELY WHEN NEEDED. X1 ASSIST WITH FWW. NO C/O CHEST PAIN OR PRESSURE. NO C/O SOB.
[2025-04-01] MEDS ORDERED: NS 500 ML IV SCH (13:30)
[2025-04-02] VITALS (7 sets, daily range): BP systolic 120–147; BP diastolic 77–106
--- NOTE | 2025-04-02 06:49 | NUR ---
PT STABLE THROUGHOUT SHIFT. PT AOX4, SBA/1 ASSIST. PARKER CONTINUES TO DRAIN CLEAR, YELLOW URINE. ABDOMINAL AND ORAL PAIN STILL PRESENT. NO C/O BLADDER SPASMS THIS SHIFT. VITAL SIGNS WNL. PT TOLERATING IV ABX WELL.
[2025-04-02] MEDS ORDERED: CefTRIAXone Sodium 2,000 MG in NS 100 ML IV SCH (06:57)
[2025-04-02 08:23] LABS: BASOPHILS ABSOLUTE AUTO 0.09 K/mm3 (0.00-0.23); BASOPHILS PERCENT AUTO 1 % (0-2); EOSINOPHILS ABSOLUTE AUTO 0.38 K/mm3 (0.00-0.68); EOSINOPHILS PERCENT AUTO 3 % (0-6); Hematocrit 32.6 % (37.0-53.0); Hemoglobin 10.7 g/dL (13.5-17.5); IMMATURE GRAN ABSOLUTE AUTO 0.26 K/mm3 (0.00-0.10); IMMATURE GRAN PERCENT AUTO 2 % (0-1); LYMPHOCYTES ABSOLUTE AUTO 1.96 K/mm3 (0.84-5.20); LYMPHOCYTES PERCENT AUTO 16 % (21-46); MONOCYTES ABSOLUTE AUTO 0.71 K/mm3 (0.16-1.47); MONOCYTES PERCENT AUTO 6 % (4-13); Mean Corpuscular HGB Conc 32.8 g/dL (31.5-36.5); Mean Corpuscular Volume 83 fL (80-100); NEUTROPHILS ABSOLUTE AUTO 8.96 K/mm3 (1.96-9.15); NEUTROPHILS PERCENT AUTO 73 % (41-73); NRBC ABSOLUTE 0.00 K/mm3 (0.00-0.02); NRBC Auto 0.0 /100 WBC (0.0-0.2); Platelet Count 633 K/mm3 (150-400); RDW Coefficient Variation 15.9 % (11.7-14.2); RDW Standard Deviation 47.8 fL (35.1-46.3)
[2025-04-02] MEDS ORDERED: Enoxaparin 40 MG/0.4 ML SYR SC SCH (09:00)
--- NOTE | 2025-04-02 09:22 | NUR ---
TRANSFER TO MEDICAL FLOOR PATIENT HAS BEEN AOX4 ALL MORNING, HOWEVER DROWSY. SBP 120'S, MAP >65. HR 100-120'S SR. 02 SATS >95% ON RA. PARKER CATHETER DRAINING TO GRAVITY. PATIENT HAD SHOWER THIS MORNING. HE HAS BEEN MED STATUS NO TELE. DENIES CHEST PAIN/PRESSURE/SOB AT THIS TIME. RESTING COMFORTABLY IN BED WITH CALL LIGHT IN REACH. REPORT HAS ALREADY BEEN GIVEN MED FLOOR. PATIENT AWAITING TRANSFER.
[2025-04-02 09:24] LABS: Alanine Aminotransfer (ALT/SGP 23.0 U/L (12-78); Albumin, Blood 2.5 g/dL (3.4-5.0); Albumin/Globulin Ratio 0.4 (0.8-1.8); Anion Gap 9.0 mmol/L (3-11); Aspartate Aminotrans (AST/SGOT 22.0 U/L (12-37); Bilirubin, Total 0.6 mg/dL (0.1-1.0); Blood Urea Nitrogen 19.0 mg/dL (8-24); CO2, Blood 28.0 mmol/L (21-32); Calcium, Blood 7.9 mg/dL (8.5-10.1); Chloride, Blood 106.0 mmol/L (98-108); Creatinine, Blood 1.38 mg/dL (0.60-1.20); Globulin, Blood 5.7 g/dL (2.2-4.0); Glucose, Blood 109.0 mg/dL (70-99); Potassium, Blood 3.7 mmol/L (3.5-5.5); Sodium, Blood 139.0 mmol/L (136-145); Total Protein, Blood 8.2 g/dL (6.4-8.2)
--- NOTE | 2025-04-02 10:53 | NUR ---
PT TRANSFERED FROM PCU 7 TO RM 329. PT ABLE TO STAND AND AMBUALTE TO HOSPITAL BED WITH SBA. PT TOLERATED TRANSFER WELL. TELE MONITOR IN PLACE AND PACKAGE WINDER INFORMED PT NOW ON MEDICAL FLOOR - PER PACKAGE WINDER SINUS TACH @ 114. PT DENIES CHEST PAIN/PRESSURE OR SOB. ABD DISTENDED, LARGE BM YESTERDAY PER PT. STOOL SOFTNER ADMINISTERED THIS AM. PARKER CATHETER PATENT AND DRAINING CLEAR YELLOW URINE. 2 RN SKIN ASSESSMENT COMPLETED AND NO SKIN ISSUES NOTED. PT REPORTS ABD DISCOMFORT BUT DENIES SIGNIFICANT PAIN OR NEED FOR PAIN MANAGEMENT AT THIS TIME. IV FLUSHED, SALINE LOCKED. PT CURRENTLY RESTING ON LEFT SIDE WITH BED IN LOWEST POSITION AND BED ALARM ON. CALL LIGHT IN REACH, REVIEWED CALL SYSTEM WITH PT.
[2025-04-02] MEDS ORDERED: Lidocaine 2% Viscous Soln 20 ML,Nystatin 100,000 Unit/ml Susp 20 ML,Mag Hydrox/Al Hydro... MT SCH (17:00)
--- NOTE | 2025-04-02 17:30 | NUR ---
PT ALERT AND ORIENTED, TRANSFERS 1P STANDBY FWW, URINARY CATHETER INTACT AND DRAINING CLEAR YELLOW URINE, PERCOCET FOR ACUTE PAIN TO LOWER ABDOMINAL AREA, MAGIC ORAL WASH ORDER IN PLACE FOR MOUTH SORE. FALL RISK INTERVENTIONS IN PLACE, CALL LIGHT IN REACH. TELE ST HR 100'S- INCREASES WITH ACTIVITY-DENIES SOB OR CHEST PAIN.
[2025-04-02] MEDS ORDERED: Nitrofurantoin/Nitrofuran Mac 100 MG Cap PO SCH (21:00)
[2025-04-03 03:24] VITALS: BP 127/78
--- NOTE | 2025-04-03 03:50 | NUR ---
SHIFT SUMMARY: AOX4. SBA WITH FWW. CARDIAC TELEMETRY MONITORING, TACHY 110s. PARKER IN PLACE, PATENT AND DRAINING BY GRAVITY. PT SHOWERED THIS SHIFT AND IS NOW COMFORTABLE IN BED. CALL LIGHT IS WITHIN REACH. BED IS LOW AND LOCKED.
[2025-04-03 07:31] VITALS: BP 139/98
[2025-04-03 08:16] LABS: BASOPHILS ABSOLUTE AUTO 0.12 K/mm3 (0.00-0.23); BASOPHILS PERCENT AUTO 1 % (0-2); EOSINOPHILS ABSOLUTE AUTO 0.33 K/mm3 (0.00-0.68); EOSINOPHILS PERCENT AUTO 3 % (0-6); Hematocrit 34.5 % (37.0-53.0); Hemoglobin 11.0 g/dL (13.5-17.5); IMMATURE GRAN ABSOLUTE AUTO 0.41 K/mm3 (0.00-0.10); IMMATURE GRAN PERCENT AUTO 4 % (0-1); LYMPHOCYTES ABSOLUTE AUTO 2.33 K/mm3 (0.84-5.20); LYMPHOCYTES PERCENT AUTO 20 % (21-46); MONOCYTES ABSOLUTE AUTO 0.64 K/mm3 (0.16-1.47); MONOCYTES PERCENT AUTO 6 % (4-13); Mean Corpuscular HGB Conc 31.9 g/dL (31.5-36.5); Mean Corpuscular Volume 85 fL (80-100); NEUTROPHILS ABSOLUTE AUTO 7.80 K/mm3 (1.96-9.15); NEUTROPHILS PERCENT AUTO 67 % (41-73); NRBC ABSOLUTE 0.00 K/mm3 (0.00-0.02); NRBC Auto 0.0 /100 WBC (0.0-0.2); Platelet Count 687 K/mm3 (150-400); RDW Coefficient Variation 15.8 % (11.7-14.2); RDW Standard Deviation 49.1 fL (35.1-46.3)
[2025-04-03 09:03] LABS: Anion Gap 8.0 mmol/L (3-11); Blood Urea Nitrogen 17.0 mg/dL (8-24); CO2, Blood 28.0 mmol/L (21-32); Calcium, Blood 9.2 mg/dL (8.5-10.1); Chloride, Blood 104.0 mmol/L (98-108); Creatinine, Blood 1.35 mg/dL (0.60-1.20); Glucose, Blood 101.0 mg/dL (70-99); Potassium, Blood 3.9 mmol/L (3.5-5.5); Sodium, Blood 136.0 mmol/L (136-145)
[2025-04-03] MEDS ORDERED: NS 250 ML IV PRN (10:20)
[2025-04-03 11:23] VITALS: BP 131/91
[2025-04-03 14:07] VITALS: BP 112/73
--- NOTE | 2025-04-03 14:31 | NUR ---
LED [employer] Sense NOTIFIED THIS RN THAT PT SUSTAINING HR IN THE 120'S UP TO 130'S. THIS RN ADMINISTERED IV LOPRESSOR, AND NOTIFIED DR. ANN.
--- NOTE | 2025-04-03 18:33 | NUR ---
SHIFT SUMMARY PATIENT ALERT AND ORIENTED X4, MAKE NEEDS KNOWN. PLEASANT AND COOPERATIVE DURING CARE. COMPLAINTS OF PAIN, MEDICATION ADMINISTERED PER MAR. INDEPENDENT IN THE ROOM. PARKER CATH IN PLACE. NO ACUTE CHANGE DURING THIS SHIFT. VITAL SIGNS STABLE. SELF-REPOSITION. BED LOCKED AND IN LOWEST POSITION. CALL LIGHT WITHIN REACH.
[2025-04-03 20:03] VITALS: BP 98/64
[2025-04-03 23:59] VITALS: BP 119/77
[2025-04-04 03:09] VITALS: BP 115/64
--- NOTE | 2025-04-04 04:06 | NUR ---
SHIFT SUMMARY: AOX4. VSS. AMBULATES WITH SBA AND FWW. PT COMPLAINS OF INTERMITTENT PAIN TO GROIN, PERCOCET GIVEN PER eMAR. CARDIAC TELEMETRY MONITORING, TACHY 110S TO 120s THIS SHIFT. METOPROLOL GIVEN TO MANAGE HR. PT DENIES CP. PARKER IS STILL IN PLACE, PATENT ANBD DRAINING BY GRAVITY. CALL LIGHT IS WITHIN REACH. BED IS LOW AND LOCKED.
[2025-04-04 05:28] LABS: BASOPHILS ABSOLUTE AUTO 0.13 K/mm3 (0.00-0.23); BASOPHILS PERCENT AUTO 1 % (0-2); EOSINOPHILS ABSOLUTE AUTO 0.32 K/mm3 (0.00-0.68); EOSINOPHILS PERCENT AUTO 3 % (0-6); Hematocrit 35.4 % (37.0-53.0); Hemoglobin 11.4 g/dL (13.5-17.5); IMMATURE GRAN ABSOLUTE AUTO 0.55 K/mm3 (0.00-0.10); IMMATURE GRAN PERCENT AUTO 4 % (0-1); LYMPHOCYTES ABSOLUTE AUTO 3.16 K/mm3 (0.84-5.20); LYMPHOCYTES PERCENT AUTO 25 % (21-46); MONOCYTES ABSOLUTE AUTO 0.74 K/mm3 (0.16-1.47); MONOCYTES PERCENT AUTO 6 % (4-13); Mean Corpuscular HGB Conc 32.2 g/dL (31.5-36.5); Mean Corpuscular Volume 86 fL (80-100); NEUTROPHILS ABSOLUTE AUTO 7.89 K/mm3 (1.96-9.15); NEUTROPHILS PERCENT AUTO 62 % (41-73); NRBC ABSOLUTE 0.00 K/mm3 (0.00-0.02); NRBC Auto 0.0 /100 WBC (0.0-0.2); Platelet Count 698 K/mm3 (150-400); RDW Coefficient Variation 15.9 % (11.7-14.2); RDW Standard Deviation 49.6 fL (35.1-46.3)
[2025-04-04 05:59] LABS: Alanine Aminotransfer (ALT/SGP 21.0 U/L (12-78); Albumin, Blood 2.5 g/dL (3.4-5.0); Albumin/Globulin Ratio 0.5 (0.8-1.8); Anion Gap 10.0 mmol/L (3-11); Aspartate Aminotrans (AST/SGOT 18.0 U/L (12-37); Bilirubin, Total 0.3 mg/dL (0.1-1.0); Blood Urea Nitrogen 24.0 mg/dL (8-24); CO2, Blood 28.0 mmol/L (21-32); Calcium, Blood 9.4 mg/dL (8.5-10.1); Chloride, Blood 104.0 mmol/L (98-108); Creatinine, Blood 1.4 mg/dL (0.60-1.20); Globulin, Blood 5.5 g/dL (2.2-4.0); Glucose, Blood 101.0 mg/dL (70-99); Potassium, Blood 4.3 mmol/L (3.5-5.5); Sodium, Blood 138.0 mmol/L (136-145); Total Protein, Blood 8.0 g/dL (6.4-8.2)
[2025-04-04 07:35] VITALS: BP 122/78
[2025-04-04] MEDS ORDERED: Ampicillin Sod 2,000 MG in NS 100 ML IV SCH (08:00)
[2025-04-04 15:45] VITALS: BP 124/81
--- NOTE | 2025-04-04 17:42 | NUR ---
SHIFT SUMMARY PT'S HR REMAINS IN THE LOW 100'S, BUT ASYMPTOMATIC. IV ABX ADJUSTED BY PROVIDER AND GIVEN PER ORDER. PARKER REMAINS IN PLACE DRAINING TO GRAVITY. RENAL/BLADDER ULTRASOUND COMPLETED THIS SHIFT. NO ACUTE CHANGES. CALL LIGHT WITHIN REACH AND PT ABLE TO MAKE NEEDS KNOWN.
[2025-04-04 20:47] VITALS: BP 104/61
[2025-04-04 23:42] VITALS: BP 115/74
--- NOTE | 2025-04-05 05:15 | NUR ---
QUALITY TECHNICIAN F[employer]ER[employer] SUMMARY PT A&OX4, VSS. ABLE TO COMMUNCIATE NEEDS APPROPRAITELY. PT HAS BEEN ASLEEP ON AND OFF THIS SHIFT. CHEST RISE/RESPIRATIONS NOTED. TELEPHONE ORDER OBTAINED TO [employer] THIS SHIFT. PT CONTINUING TO RECEIVE AMPICILLIN Q4. OXYCODONE ADMIN X 1 W/ MODERATE EFFECT. PT STATED PAIN WAS BETTER, BUT RATED PAIN THE SAME ON 0-10 SCALE. BED RAILS UP X 2, BED IN LOWEST POSITION, BED WHEELS LOCKED, PERSONAL BELONGINGS AND CALL LIGHT WITHIN REACH FOR SAFETY.
[2025-04-05 06:22] VITALS: BP 107/75
[2025-04-05 07:28] VITALS: BP 120/78
[2025-04-05 07:54] LABS: BASOPHILS ABSOLUTE AUTO 0.22 K/mm3 (0.00-0.23); BASOPHILS PERCENT AUTO 2 % (0-2); EOSINOPHILS ABSOLUTE AUTO 0.28 K/mm3 (0.00-0.68); EOSINOPHILS PERCENT AUTO 2 % (0-6); Hematocrit 35.0 % (37.0-53.0); Hemoglobin 11.1 g/dL (13.5-17.5); IMMATURE GRAN ABSOLUTE AUTO 0.62 K/mm3 (0.00-0.10); IMMATURE GRAN PERCENT AUTO 5 % (0-1); LYMPHOCYTES ABSOLUTE AUTO 2.87 K/mm3 (0.84-5.20); LYMPHOCYTES PERCENT AUTO 21 % (21-46); MONOCYTES ABSOLUTE AUTO 0.74 K/mm3 (0.16-1.47); MONOCYTES PERCENT AUTO 6 % (4-13); Mean Corpuscular HGB Conc 31.7 g/dL (31.5-36.5); Mean Corpuscular Volume 85 fL (80-100); NEUTROPHILS ABSOLUTE AUTO 8.68 K/mm3 (1.96-9.15); NEUTROPHILS PERCENT AUTO 65 % (41-73); NRBC ABSOLUTE 0.00 K/mm3 (0.00-0.02); NRBC Auto 0.0 /100 WBC (0.0-0.2); Platelet Count 684 K/mm3 (150-400); RDW Coefficient Variation 15.9 % (11.7-14.2); RDW Standard Deviation 49.0 fL (35.1-46.3)
[2025-04-05 08:14] LABS: Anion Gap 10.0 mmol/L (3-11); Blood Urea Nitrogen 33.0 mg/dL (8-24); CO2, Blood 25.0 mmol/L (21-32); Calcium, Blood 8.9 mg/dL (8.5-10.1); Chloride, Blood 105.0 mmol/L (98-108); Creatinine, Blood 1.24 mg/dL (0.60-1.20); Glucose, Blood 100.0 mg/dL (70-99); Potassium, Blood 4.3 mmol/L (3.5-5.5); Sodium, Blood 136.0 mmol/L (136-145)
[2025-04-05 15:14] VITALS: BP 114/73
--- NOTE | 2025-04-05 18:28 | NUR ---
SHIFT SUMMARY PATIENT ALERT AND ORIENTED X4, MAKE NEEDS KNOWN. PLEASANT AND RECEPTIVE DURING CARE. COMPLAINTS OF PAIN, MEDICATION ADMINISTERED PER MAR. INDEPENDENT IN THE ROOM. CHRONIC PARKER CATH IN PLACE. NO ACUTE CHANGE DURING THIS SHIFT. SELF-REPOSITION. BED LOCKED AND IN LOWEST POSITION. CALL LIGHT WITHIN REACH.
[2025-04-05 19:53] VITALS: BP 119/71
[2025-04-06 05:16] VITALS: BP 110/73
--- NOTE | 2025-04-06 05:29 | NUR ---
SHIFT SUMMARY NO ACUTE CHANGES OVERNIGHT. PT REMAINS A&OX4. 1P SBA WITH FWW. MULTIPLE TRIPS IN RECLINER TO 3RD FLOOR LOBBY FOR FRESH AIR. CATHETER CARE FOR INDWELLING PARKER CATHETER, PLAN FOR OUTPT UROLOGY F/U. PT STATES HE IS COMFORTABLE WITH CATH CARE, AND REQUESTS LEG BAG FOR EASE OF TRANSPORT/USE. DISPOSITION PENDING MORNING LABS. PT HAS PARENTS AVAILABLE FOR TRANSPORT, BUT REMAINS UNHOUSED, AND WAITLISTED FOR HOUSING OPPORTUNITIES. PLEASE PROVIDE FOOD FOR FOOD INSECURITY AT TIME OF DISPOSITION. PT WILL ALSO REQUIRE OUTPUT DENTAL F/U FOR BROKEN DENTITION THAT PUNCTURED TONGUE. HE DOES NOT HAVE A DENTIST CURRENTLY. NO FURTHER EVIDENCE OF RLE CELLULITIS. IV PATENT IN RAC. PT REMAINS QUITE PAINFUL IN SUPRAPUBIC REGION, RIBS, AND BACK, MEDICATED PER MAR. HE WILL DISCUSS PAIN CONTRACT WITH HIS PCP FOR THE FUTURE.
[2025-04-06 06:56] LABS: BASOPHILS ABSOLUTE AUTO 0.18 K/mm3 (0.00-0.23); BASOPHILS PERCENT AUTO 1 % (0-2); EOSINOPHILS ABSOLUTE AUTO 0.30 K/mm3 (0.00-0.68); EOSINOPHILS PERCENT AUTO 2 % (0-6); Hematocrit 33.5 % (37.0-53.0); Hemoglobin 10.7 g/dL (13.5-17.5); IMMATURE GRAN ABSOLUTE AUTO 0.62 K/mm3 (0.00-0.10); IMMATURE GRAN PERCENT AUTO 5 % (0-1); LYMPHOCYTES ABSOLUTE AUTO 3.82 K/mm3 (0.84-5.20); LYMPHOCYTES PERCENT AUTO 28 % (21-46); MONOCYTES ABSOLUTE AUTO 0.75 K/mm3 (0.16-1.47); MONOCYTES PERCENT AUTO 6 % (4-13); Mean Corpuscular HGB Conc 31.9 g/dL (31.5-36.5); Mean Corpuscular Volume 85 fL (80-100); NEUTROPHILS ABSOLUTE AUTO 7.90 K/mm3 (1.96-9.15); NEUTROPHILS PERCENT AUTO 58 % (41-73); NRBC ABSOLUTE 0.00 K/mm3 (0.00-0.02); NRBC Auto 0.0 /100 WBC (0.0-0.2); Platelet Count 674 K/mm3 (150-400); RDW Coefficient Variation 15.9 % (11.7-14.2); RDW Standard Deviation 49.4 fL (35.1-46.3)
[2025-04-06 07:04] LABS: Anion Gap 8.0 mmol/L (3-11); Blood Urea Nitrogen 32.0 mg/dL (8-24); CO2, Blood 26.0 mmol/L (21-32); Calcium, Blood 8.7 mg/dL (8.5-10.1); Chloride, Blood 105.0 mmol/L (98-108); Creatinine, Blood 1.1 mg/dL (0.60-1.20); Glucose, Blood 89.0 mg/dL (70-99); Potassium, Blood 4.4 mmol/L (3.5-5.5); Sodium, Blood 135.0 mmol/L (136-145)
[2025-04-06 07:40] VITALS: BP 111/73
[2025-04-06 15:38] VITALS: BP 115/66
--- NOTE | 2025-04-06 17:36 | NUR ---
PATIENT RESTED IN BED TODAY, INDEPENDENT WITH CARE AND LETS STAFF KNOW NEEDS. CALL LIGHT WITHIN REACH. PATIENT REQUESTING INCREASE IN PAIN MEDICATION. MD CALLED. WAITING ORDERS.
[2025-04-06] MEDS ORDERED: Ketorolac Tromethamine 15mg Vial IV PRN (18:20)
[2025-04-06 19:37] VITALS: BP 105/83
[2025-04-06 23:57] VITALS: BP 106/72
[2025-04-07 03:33] VITALS: BP 108/68
--- NOTE | 2025-04-07 04:41 | NUR ---
SHIFT SUMMARY PATIENT A/OX4, ABLE TO MAKE NEEDS KNOWN. PLEASANT AND COOPERATIVE WITH CARE. PATIENT COMPLAINING OF SUPRAPUBIC CATHETER PAIN AND TOOTH PAIN R/T BROKEN TOOTH, MEDICATED PER JUL. PATIENT WITH INCREASED APPETITE, REQUESTING MULTIPLE SMACLS THROUGHOUT THE NIGHT. WAS ABLE TO FALL ASLEEP LATE AROUND 0300 THIS AM. PARKER FUNCTIONING PROPERLY, DRAINING CLEAR YELLOW URINE. LEG BAG SUPPLIES PROVIDED TO PATIENT PER HIS REQUEST PRIOR TO DISCHARGE. NO OTHER CONCERNS AT THIS TIME, WILL CONTINUE TO MONITOR.
[2025-04-07 05:42] LABS: BASOPHILS ABSOLUTE AUTO 0.20 K/mm3 (0.00-0.23); BASOPHILS PERCENT AUTO 2 % (0-2); EOSINOPHILS ABSOLUTE AUTO 0.27 K/mm3 (0.00-0.68); EOSINOPHILS PERCENT AUTO 2 % (0-6); Hematocrit 32.4 % (37.0-53.0); Hemoglobin 10.5 g/dL (13.5-17.5); IMMATURE GRAN ABSOLUTE AUTO 0.51 K/mm3 (0.00-0.10); IMMATURE GRAN PERCENT AUTO 4 % (0-1); LYMPHOCYTES ABSOLUTE AUTO 2.82 K/mm3 (0.84-5.20); LYMPHOCYTES PERCENT AUTO 24 % (21-46); MONOCYTES ABSOLUTE AUTO 0.81 K/mm3 (0.16-1.47); MONOCYTES PERCENT AUTO 7 % (4-13); Mean Corpuscular HGB Conc 32.4 g/dL (31.5-36.5); Mean Corpuscular Volume 86 fL (80-100); NEUTROPHILS ABSOLUTE AUTO 7.10 K/mm3 (1.96-9.15); NEUTROPHILS PERCENT AUTO 61 % (41-73); NRBC ABSOLUTE 0.00 K/mm3 (0.00-0.02); NRBC Auto 0.0 /100 WBC (0.0-0.2); Platelet Count 659 K/mm3 (150-400); RDW Coefficient Variation 16.4 % (11.7-14.2); RDW Standard Deviation 51.0 fL (35.1-46.3)
[2025-04-07 06:07] LABS: Anion Gap 8.0 mmol/L (3-11); Blood Urea Nitrogen 38.0 mg/dL (8-24); CO2, Blood 25.0 mmol/L (21-32); Calcium, Blood 8.3 mg/dL (8.5-10.1); Chloride, Blood 107.0 mmol/L (98-108); Creatinine, Blood 1.15 mg/dL (0.60-1.20); Glucose, Blood 104.0 mg/dL (70-99); Potassium, Blood 4.0 mmol/L (3.5-5.5); Sodium, Blood 136.0 mmol/L (136-145)
[2025-04-07 07:26] VITALS: BP 124/82
[2025-04-07 15:58] VITALS: BP 124/88
--- NOTE | 2025-04-07 16:56 | NUR ---
PATIENT RESTING IN ROOM MOST OF SHIFT WITH NO CONCERNS. PATIENT ANTICIPATES POSSIBLE DISCHARGE TOMORROW. KEITH SUPPLIES ON PATIENTS DOOR FOR DISCHARGE. USES CALL LIGHT APPROPRIATLEY AND INDEPENDENT IN ROOM.
[2025-04-07 19:46] VITALS: BP 119/76
[2025-04-08 04:53] VITALS: BP 109/70
[2025-04-08 05:06] LABS: BASOPHILS ABSOLUTE AUTO 0.24 K/mm3 (0.00-0.23); BASOPHILS PERCENT AUTO 2 % (0-2); EOSINOPHILS ABSOLUTE AUTO 0.35 K/mm3 (0.00-0.68); EOSINOPHILS PERCENT AUTO 2 % (0-6); Hematocrit 32.5 % (37.0-53.0); Hemoglobin 10.4 g/dL (13.5-17.5); IMMATURE GRAN ABSOLUTE AUTO 0.53 K/mm3 (0.00-0.10); IMMATURE GRAN PERCENT AUTO 4 % (0-1); LYMPHOCYTES ABSOLUTE AUTO 3.62 K/mm3 (0.84-5.20); LYMPHOCYTES PERCENT AUTO 25 % (21-46); MONOCYTES ABSOLUTE AUTO 1.38 K/mm3 (0.16-1.47); MONOCYTES PERCENT AUTO 9 % (4-13); Mean Corpuscular HGB Conc 32.0 g/dL (31.5-36.5); Mean Corpuscular Volume 87 fL (80-100); NEUTROPHILS ABSOLUTE AUTO 8.56 K/mm3 (1.96-9.15); NEUTROPHILS PERCENT AUTO 58 % (41-73); NRBC ABSOLUTE 0.00 K/mm3 (0.00-0.02); NRBC Auto 0.0 /100 WBC (0.0-0.2); Platelet Count 678 K/mm3 (150-400); RDW Coefficient Variation 16.5 % (11.7-14.2); RDW Standard Deviation 51.7 fL (35.1-46.3)
[2025-04-08 05:31] LABS: Alanine Aminotransfer (ALT/SGP 19.0 U/L (12-78); Albumin, Blood 2.4 g/dL (3.4-5.0); Albumin/Globulin Ratio 0.5 (0.8-1.8); Anion Gap 9.0 mmol/L (3-11); Aspartate Aminotrans (AST/SGOT 12.0 U/L (12-37); Bilirubin, Total 0.2 mg/dL (0.1-1.0); Blood Urea Nitrogen 34.0 mg/dL (8-24); CO2, Blood 26.0 mmol/L (21-32); Calcium, Blood 8.5 mg/dL (8.5-10.1); Chloride, Blood 108.0 mmol/L (98-108); Creatinine, Blood 0.95 mg/dL (0.60-1.20); Globulin, Blood 4.6 g/dL (2.2-4.0); Glucose, Blood 92.0 mg/dL (70-99); Potassium, Blood 4.3 mmol/L (3.5-5.5); Sodium, Blood 139.0 mmol/L (136-145); Total Protein, Blood 7.0 g/dL (6.4-8.2)
--- NOTE | 2025-04-08 05:48 | NUR ---
SHIFT SUMMARY PATIENT A/OX4, ABLE TO MAKE NEEDS KNOWN. PLEASANT AND COOPERATIVE WITH STAFF. PATIENT REQUESTING MULTIPLE SNACKS THROUGHOUT THE NIGHT. COMPLAINING OF SUPRAPUBIC PAIN, MEDICATED PER JUL. PARKER CATHETER PATENT AND DRAINING APPROPRIATELY, CLEAR YELLOW URINE. NO OTHER CONCERNS AT THIS TIME, WILL CONTINUE TO MONITOR.
[2025-04-08 07:46] VITALS: BP 105/72
[2025-04-08 08:12] VITALS: BP 121/79
[2025-04-08 15:30] VITALS: BP 115/79
--- NOTE | 2025-04-08 19:29 | NUR ---
SHIFT SUMMARY PT A&OX4. PT ADMITTED DUE TO SEVERE SEPSIS. PT REPORTS NO SOB, NO CHEST PAIN, PT REPORTS PAIN IN LOWER ABD AND BACK, PAIN MANAGED PER EMAR. PT HAS PARKER FOR ACUTE RETENTION, PARKER DRAINING ADEQUATE WITH NO DEPENDENT LOOPS. PT INDEPENDENT IN ROOM, PT VSS. IT BUSINESS PROCESS ARCHITECT CAME TO SEE PT TODAY. DENTAL HYGENTIST CONSULTED TODAY. PT HAS ORDER FOR ORAL RINSE X3. PT GIVEN ONE ORAL RINSE. PT REFUSED XYLOCAINE MOUTH RINSE, RINSE WAS D/C'D. DR. STUBBS REPORTS "STAY ANOTHER DAY FOR IV ANTIBIOTICS." PT IN BED, BED IN LOWEST POSITION, LOCKED, CALL LIGHT IN REACH.
[2025-04-08 19:44] VITALS: BP 103/58
[2025-04-09 02:09] VITALS: BP 108/68
--- NOTE | 2025-04-09 05:17 | NUR ---
SHIFT SUMMARY PATIENT A&OX4, SLEPT T/O SHIFT BESIDES FOR MED PASSES AND SNACKS. PATIENT USES CALL LIGHT APPROPRIATELY, BED RAILS UP X2, BED AT LOWEST LEVEL, NO DISTRESS NOTED
[2025-04-09 06:25] LABS: BASOPHILS ABSOLUTE AUTO 0.26 K/mm3 (0.00-0.23); BASOPHILS PERCENT AUTO 2 % (0-2); EOSINOPHILS ABSOLUTE AUTO 0.35 K/mm3 (0.00-0.68); EOSINOPHILS PERCENT AUTO 3 % (0-6); Hematocrit 32.9 % (37.0-53.0); Hemoglobin 10.5 g/dL (13.5-17.5); IMMATURE GRAN ABSOLUTE AUTO 0.47 K/mm3 (0.00-0.10); IMMATURE GRAN PERCENT AUTO 4 % (0-1); LYMPHOCYTES ABSOLUTE AUTO 3.04 K/mm3 (0.84-5.20); LYMPHOCYTES PERCENT AUTO 25 % (21-46); MONOCYTES ABSOLUTE AUTO 0.90 K/mm3 (0.16-1.47); MONOCYTES PERCENT AUTO 7 % (4-13); Mean Corpuscular HGB Conc 31.9 g/dL (31.5-36.5); Mean Corpuscular Volume 86 fL (80-100); NEUTROPHILS ABSOLUTE AUTO 7.11 K/mm3 (1.96-9.15); NEUTROPHILS PERCENT AUTO 59 % (41-73); NRBC ABSOLUTE 0.00 K/mm3 (0.00-0.02); NRBC Auto 0.0 /100 WBC (0.0-0.2); Platelet Count 721 K/mm3 (150-400); RDW Coefficient Variation 16.8 % (11.7-14.2); RDW Standard Deviation 52.4 fL (35.1-46.3)
[2025-04-09 06:47] LABS: Anion Gap 9.0 mmol/L (3-11); Blood Urea Nitrogen 33.0 mg/dL (8-24); CO2, Blood 27.0 mmol/L (21-32); Calcium, Blood 9.0 mg/dL (8.5-10.1); Chloride, Blood 106.0 mmol/L (98-108); Creatinine, Blood 0.84 mg/dL (0.60-1.20); Glucose, Blood 97.0 mg/dL (70-99); Potassium, Blood 4.5 mmol/L (3.5-5.5); Sodium, Blood 137.0 mmol/L (136-145)
[2025-04-09 07:25] VITALS: BP 120/72
[2025-04-09 15:04] VITALS: BP 113/73
--- NOTE | 2025-04-09 18:04 | NUR ---
SHIFT SUMMARY PT A&OX4, VSS, RA, NON-TELE, IND IN ROOM FOR BM. SLEPT ON AND OFF THROUGHOUT SHIFT. PARKER IN PLACE DRAINING CLEAR YELLOW URINE. PAIN MANAGED WITH PRN PERCOCET. PER DR. STUBBS, PT TO STAY AT LEAST ONE MORE NIGHT FOR WBC TO DECREASE TO WITHIN NORMAL VALUES. IV ABX CONTINUED. PT ABLE TO MAKE NEEDS KNOWN, CALL LIGHT IN REACH.
[2025-04-09 19:33] VITALS: BP 126/77
[2025-04-10 03:56] VITALS: BP 108/59
--- NOTE | 2025-04-10 04:44 | NUR ---
SHIFT SUMMARY PATIENT A&OX4, ABLE TO MAKE NEEDS KNOWN, CALL LIGHT WITHIN REACH, BED AT LOWEST LEVEL, PATIENT HAS SLEPT T/O SHIFT. HAS ATE AND DRANK QUITE A BIT, NO DISTRESS NOTED
[2025-04-10 06:11] LABS: BASOPHILS ABSOLUTE AUTO 0.33 K/mm3 (0.00-0.23); BASOPHILS PERCENT AUTO 2 % (0-2); EOSINOPHILS ABSOLUTE AUTO 0.40 K/mm3 (0.00-0.68); EOSINOPHILS PERCENT AUTO 3 % (0-6); Hematocrit 33.3 % (37.0-53.0); Hemoglobin 10.6 g/dL (13.5-17.5); IMMATURE GRAN ABSOLUTE AUTO 0.61 K/mm3 (0.00-0.10); IMMATURE GRAN PERCENT AUTO 4 % (0-1); LYMPHOCYTES ABSOLUTE AUTO 3.58 K/mm3 (0.84-5.20); LYMPHOCYTES PERCENT AUTO 25 % (21-46); MONOCYTES ABSOLUTE AUTO 1.05 K/mm3 (0.16-1.47); MONOCYTES PERCENT AUTO 8 % (4-13); Mean Corpuscular HGB Conc 31.8 g/dL (31.5-36.5); Mean Corpuscular Volume 87 fL (80-100); NEUTROPHILS ABSOLUTE AUTO 8.12 K/mm3 (1.96-9.15); NEUTROPHILS PERCENT AUTO 58 % (41-73); NRBC ABSOLUTE 0.00 K/mm3 (0.00-0.02); NRBC Auto 0.0 /100 WBC (0.0-0.2); Platelet Count 745 K/mm3 (150-400); RDW Coefficient Variation 16.9 % (11.7-14.2); RDW Standard Deviation 53.5 fL (35.1-46.3)
[2025-04-10 07:42] VITALS: BP 128/77
[2025-04-10 15:40] VITALS: BP 138/74
--- NOTE | 2025-04-10 16:48 | NUR ---
SHIFT SUMMARY PT HAS BEEN LAYING IN BED MOST OF THE DAY. SLEEPING ON AND OFF. C/O FEELING "HOT" PT IS SWEATING SOME, BUT AFEBRILE. FAN IN USE FOR COMFORT. ECHO COMPLETED TODAY. PT ASKING ABOUT DISCHARGE, STATING "I MAY LEAVE REGARDLESS TODAY". PT MEDICATED FOR PAIN TWICE THIS SHIFT. PT STATES PAIN MEDS DO NOT HELP HIS PAIN IS CHRONIC FROM AN OLD BACK INJURY. SNACKING OFTEN. PARKER CATH PATENT & DRAINING WELL. NO OTHER ACUTE CHANGES IN ASSESSMENT AT THIS TIME. VS REVIEWED. CALL LIGHT IN REACH. DENIES OTHER NEEDS AT THIS TIME.
[2025-04-10 19:50] VITALS: BP 111/81
[2025-04-11 05:01] LABS: BASOPHILS ABSOLUTE AUTO 0.33 K/mm3 (0.00-0.23); BASOPHILS PERCENT AUTO 2 % (0-2); EOSINOPHILS ABSOLUTE AUTO 0.40 K/mm3 (0.00-0.68); EOSINOPHILS PERCENT AUTO 3 % (0-6); Hematocrit 34.4 % (37.0-53.0); Hemoglobin 11.0 g/dL (13.5-17.5); IMMATURE GRAN ABSOLUTE AUTO 0.64 K/mm3 (0.00-0.10); IMMATURE GRAN PERCENT AUTO 4 % (0-1); LYMPHOCYTES ABSOLUTE AUTO 3.74 K/mm3 (0.84-5.20); LYMPHOCYTES PERCENT AUTO 25 % (21-46); MONOCYTES ABSOLUTE AUTO 0.96 K/mm3 (0.16-1.47); MONOCYTES PERCENT AUTO 6 % (4-13); Mean Corpuscular HGB Conc 32.0 g/dL (31.5-36.5); Mean Corpuscular Volume 87 fL (80-100); NEUTROPHILS ABSOLUTE AUTO 8.95 K/mm3 (1.96-9.15); NEUTROPHILS PERCENT AUTO 60 % (41-73); NRBC ABSOLUTE 0.00 K/mm3 (0.00-0.02); NRBC Auto 0.0 /100 WBC (0.0-0.2); Platelet Count 748 K/mm3 (150-400); RDW Coefficient Variation 17.1 % (11.7-14.2); RDW Standard Deviation 54.4 fL (35.1-46.3)
[2025-04-11 05:31] VITALS: BP 143/81
[2025-04-11 05:31] LABS: Anion Gap 12.0 mmol/L (3-11); Blood Urea Nitrogen 43.0 mg/dL (8-24); CO2, Blood 21.0 mmol/L (21-32); Calcium, Blood 9.1 mg/dL (8.5-10.1); Chloride, Blood 107.0 mmol/L (98-108); Creatinine, Blood 0.86 mg/dL (0.60-1.20); Glucose, Blood 120.0 mg/dL (70-99); Potassium, Blood 4.0 mmol/L (3.5-5.5); Sodium, Blood 136.0 mmol/L (136-145); Thyroid Stimulating Hormone 1.86 uIU/mL (0.360-4.800)
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
[2025-04-11 07:29] VITALS: BP 114/84
--- NOTE | 2025-04-11 09:41 | NUR ---
PENG CALLED DR STUBBS ABOUT PT WANTING TO GO AMA. HE IS PACKING HIS BELONGINGS. SHE WILL SEE HIM AND DISCHARGE. EDUCATED PT TOÑO THERE ARE NO OPEN PHARMACY IN [place] TODAY. HE DOESN'T HAVE ANY PAIN COMNTROL MEDICATIONS.
[2025-04-11] MEDS ORDERED: METO25 PO (10:32)
[2025-04-11] MEDS ORDERED: VISBIOME 112.51 EACH PO (10:32)
[2025-04-11] MEDS ORDERED: DOXY100 PO (10:32)
--- NOTE | 2025-04-11 10:33 | NUR ---
AMA/DISCHARGE PT PACKED BELONGINGS UP. DR STUBBS WROTE DISCHARGE OPRDERS. PT WALKED OUT PRIOR TO RECEIVING DISCHARGE ORDERS. ORDERS FAXED TO [facility] PER PT REQUEST. IV REMOVED PRIOR TO LEAVING. PT REFUSED TO WAIT FOR PAPERWORK. DISPUTE RESOLUTION SPECIALIST FOLLOWED PT OUT. SECURITY MADE AWARE OF PT SITTING ON BENCH OUTSIDE. WILL HOLD ROOM INCASE OPT RETURNS FOR HIS BELONGINGS.
--- NOTE | 2025-04-11 10:39 | NUR ---
NOTE PT REFUSED ASSESSMENT THIS MORNING. CARE ONGOING.
--- NOTE | 2025-04-11 12:04 | NUR ---
NOTE PT HAS NOT RETUNRED FOR HIS BELONGINGS. CONTACTED SECURITY. CURRY IS GOING TO ASK HIM TO RETURN FOR HIS BELONGINGS.
--- NOTE | 2025-04-11 12:12 | NUR ---
NOTE WITH C D STRIPPER, PT RETURNED FOR HIS BELONGINGS. LET PT KNOW HIS PERSCRIPTIONS WERE AT [facility] PER HIS REQUEST. HE REFUSED DISCHARGE PAPERWORK.
== END 2025-04-11 12:30 | disposition home or self-care (01) | DRG 872 ==
LOC: ER 18:44 → MEDS 21:31 → PCU 21:31 → MEDS 04-02 09:38
PROVIDERS: Emergency Medicine; Family Medicine; Internal Medicine; Nurse Practitioner Acute Care; ADMIT Internal Medicine
PROC: 0T9B70Z Drainage of Bladder with Drainage Device, Via Natural or Artificial Opening (ICD-10-PCS; principal; 2025-03-29)
PROC: 3E02340 Introduction of Influenza Vaccine into Muscle, Percutaneous Approach (ICD-10-PCS; 2025-03-29)
PROC: 3E03329 Introduction of Other Anti-infective into Peripheral Vein, Percutaneous Approach (ICD-10-PCS; 2025-03-30)
DX: A41.81 Sepsis due to Enterococcus (principal); N13.6 Pyonephrosis; Z16.11 Resistance to penicillins; L03.115 Cellulitis of right lower limb; N17.9 Acute kidney failure, unspecified; E87.1 Hypo-osmolality and hyponatremia; A41.51 Sepsis due to Escherichia coli [E. coli]; A41.54 Sepsis due to Acinetobacter baumannii; R65.20 Severe sepsis without septic shock; D63.1 Anemia in chronic kidney disease; I12.9 Hypertensive chronic kidney disease with stage 1 through stage 4 chronic kidney disease, or unspecified chronic kidney disease; F17.210 Nicotine dependence, cigarettes, uncomplicated; F15.10 Other stimulant abuse, uncomplicated; R53.83 Other fatigue; R33.8 Other retention of urine; D75.838 Other thrombocytosis; R00.0 Tachycardia, unspecified; I51.89 Other ill-defined heart diseases; F41.9 Anxiety disorder, unspecified; Z23 Encounter for immunization; N18.30 Chronic kidney disease, stage 3 unspecified; M54.9 Dorsalgia, unspecified; G89.29 Other chronic pain; K59.09 Other constipation; F11.10 Opioid abuse, uncomplicated; N32.0 Bladder-neck obstruction; Z79.899 Other long term (current) drug therapy; Z79.2 Long term (current) use of antibiotics; Z87.828 Personal history of other (healed) physical injury and trauma; Z98.890 Other specified postprocedural states; Z87.19 Personal history of other diseases of the digestive system; Z87.39 Personal history of other diseases of the musculoskeletal system and connective tissue
CPT/HCPCS: 36415; 51702; 76770; 80048; 80053; 81001; 82803; 82947; 83605; 83735; 83880; 84145; 84443; 85025; 86140; 87040; 87077; 87086; 87186; 93306; 93971; 99285-25; A9270; J0290; J0696; J1650; J1885; J2060; J2543; J3480; J7040; J7050; J7120

== ENCOUNTER → 2025-03-29 | Outpatient (CLI) | payer MEDICARE ==
[~2025-03-29] MED LIST changes: +DOXY100 PO; +Flomax0.4 MG PO; +METO25 PO; +VISBIOME 112.51 EACH PO
== END ==
LOC: LAB SHORT 15:42 → LAB 15:42
DX: N39.0 Urinary tract infection, site not specified (principal)
CPT/HCPCS: 87077; 87086; 87186

== ENCOUNTER 2025-04-22 13:44 | Emergency (ER) | payer OTHER, MEDICARE ==
[~2025-04-22] VITALS: Ht 175.3 cm; Wt 90.7 kg
[~2025-04-22 13:44] MED LIST changes: +DOXY100 PO; +METO25 PO; +VISBIOME 112.51 EACH PO
[2025-04-22 14:27] LABS: BASOPHILS ABSOLUTE AUTO 0.10 K/mm3 (0.00-0.23); BASOPHILS PERCENT AUTO 1 % (0-2); EOSINOPHILS ABSOLUTE AUTO 0.26 K/mm3 (0.00-0.68); EOSINOPHILS PERCENT AUTO 3 % (0-6); Hematocrit 34.5 % (37.0-53.0); Hemoglobin 10.8 g/dL (13.5-17.5); IMMATURE GRAN ABSOLUTE AUTO 0.04 K/mm3 (0.00-0.10); IMMATURE GRAN PERCENT AUTO 0 % (0-1); LYMPHOCYTES ABSOLUTE AUTO 1.64 K/mm3 (0.84-5.20); LYMPHOCYTES PERCENT AUTO 17 % (21-46); MONOCYTES ABSOLUTE AUTO 0.62 K/mm3 (0.16-1.47); MONOCYTES PERCENT AUTO 7 % (4-13); Mean Corpuscular HGB Conc 31.3 g/dL (31.5-36.5); Mean Corpuscular Volume 87 fL (80-100); NEUTROPHILS ABSOLUTE AUTO 6.87 K/mm3 (1.96-9.15); NEUTROPHILS PERCENT AUTO 72 % (41-73); NRBC ABSOLUTE 0.00 K/mm3 (0.00-0.02); NRBC Auto 0.0 /100 WBC (0.0-0.2); Platelet Count 398 K/mm3 (150-400); RDW Coefficient Variation 16.9 % (11.7-14.2); RDW Standard Deviation 53.8 fL (35.1-46.3)
[2025-04-22 14:54] LABS: Alanine Aminotransfer (ALT/SGP 29.0 U/L (12-78); Albumin, Blood 3.5 g/dL (3.4-5.0); Albumin/Globulin Ratio 0.7 (0.8-1.8); Anion Gap 3.0 mmol/L (3-11); Aspartate Aminotrans (AST/SGOT 23.0 U/L (12-37); Bilirubin, Total 0.4 mg/dL (0.1-1.0); Blood Urea Nitrogen 19.0 mg/dL (8-24); CO2, Blood 28.0 mmol/L (21-32); Calcium, Blood 9.7 mg/dL (8.5-10.1); Chloride, Blood 105.0 mmol/L (98-108); Creatinine, Blood 1.08 mg/dL (0.60-1.20); Globulin, Blood 4.9 g/dL (2.2-4.0); Glucose, Blood 88.0 mg/dL (70-99); Magnesium, Blood 2.0 mg/dL (1.6-2.4); Potassium, Blood 3.8 mmol/L (3.5-5.5); Sodium, Blood 132.0 mmol/L (136-145); Total Protein, Blood 8.4 g/dL (6.4-8.2)
[2025-04-22 18:30] VITALS: BP 151/77
[2025-04-22] MEDS ORDERED: Trimethoprim/Sulfamethoxazole DS Tab PO ONE (18:30)
[2025-04-22] MEDS ORDERED: SULTRIDS PO (18:32)
[2025-04-22] MEDS ORDERED: ALEVAZOL56.7 G1 TOP (18:32)
== END 2025-04-22 19:04 | disposition home or self-care (01) ==
LOC: ER 13:44
PROVIDERS: Emergency Medicine
DX: L03.115 Cellulitis of right lower limb (principal); L03.116 Cellulitis of left lower limb; N48.1 Balanitis; S09.90XA Unspecified injury of head, initial encounter; V03.90XA Pedestrian on foot injured in collision with car, pick-up truck or van, unspecified whether traffic or nontraffic accident, initial encounter; I10 Essential (primary) hypertension; F17.210 Nicotine dependence, cigarettes, uncomplicated; Z79.899 Other long term (current) drug therapy
CPT/HCPCS: 70450; 73590; 80053; 83605; 83735; 85025; A9270

== ENCOUNTER 2025-05-10 19:53 | Inpatient (IN) | payer MEDICARE ==
[~2025-05-10] VITALS: Ht 175.3 cm; Wt 86.8 kg
[~2025-05-10 19:53] MED LIST changes: +ALEVAZOL56.7 G1 TOP
[2025-05-10] MEDS ORDERED: Ketorolac Tromethamine 15mg Vial IV ONE (20:10)
[2025-05-10] MEDS ORDERED: NS 1,000 ML IV SCH (20:10)
[2025-05-10 20:59] LABS: Alanine Aminotransfer (ALT/SGP 25.0 U/L (12-78); Albumin, Blood 3.3 g/dL (3.4-5.0); Albumin/Globulin Ratio 0.8 (0.8-1.8); Anion Gap 11.0 mmol/L (3-11); Aspartate Aminotrans (AST/SGOT 19.0 U/L (12-37); Bilirubin, Total 0.4 mg/dL (0.1-1.0); Blood Urea Nitrogen 54.0 mg/dL (8-24); CO2, Blood 22.0 mmol/L (21-32); Calcium, Blood 8.9 mg/dL (8.5-10.1); Chloride, Blood 109.0 mmol/L (98-108); Creatinine, Blood 5.73 mg/dL (0.60-1.20); Globulin, Blood 4.4 g/dL (2.2-4.0); Glucose, Blood 85.0 mg/dL (70-99); Potassium, Blood 4.2 mmol/L (3.5-5.5); Sodium, Blood 138.0 mmol/L (136-145); Total Protein, Blood 7.7 g/dL (6.4-8.2)
[2025-05-10 21:25] LABS: BASOPHILS ABSOLUTE AUTO 0.07 K/mm3 (0.00-0.23); BASOPHILS PERCENT AUTO 1 % (0-2); EOSINOPHILS ABSOLUTE AUTO 0.23 K/mm3 (0.00-0.68); EOSINOPHILS PERCENT AUTO 2 % (0-6); Hematocrit 34.6 % (37.0-53.0); Hemoglobin 11.1 g/dL (13.5-17.5); IMMATURE GRAN ABSOLUTE AUTO 0.03 K/mm3 (0.00-0.10); IMMATURE GRAN PERCENT AUTO 0 % (0-1); LYMPHOCYTES ABSOLUTE AUTO 0.89 K/mm3 (0.84-5.20); LYMPHOCYTES PERCENT AUTO 9 % (21-46); MONOCYTES ABSOLUTE AUTO 0.64 K/mm3 (0.16-1.47); MONOCYTES PERCENT AUTO 7 % (4-13); Mean Corpuscular HGB Conc 32.1 g/dL (31.5-36.5); Mean Corpuscular Volume 86 fL (80-100); NEUTROPHILS ABSOLUTE AUTO 7.70 K/mm3 (1.96-9.15); NEUTROPHILS PERCENT AUTO 81 % (41-73); NRBC ABSOLUTE 0.00 K/mm3 (0.00-0.02); NRBC Auto 0.0 /100 WBC (0.0-0.2); Platelet Count 390 K/mm3 (150-400); RDW Coefficient Variation 16.1 % (11.7-14.2); RDW Standard Deviation 51.6 fL (35.1-46.3)
[2025-05-10] MEDS ORDERED: FentaNYL Citrate 50 MCG/ML 2 ML Injection IV SCH (23:00)
[2025-05-10 23:04] LABS: Source, Urine Clean Catch
[2025-05-10 23:06] LABS: CORONAVIRUS COVID-19 AG Negative (NEGATIVE)
[2025-05-10 23:23] LABS: Bilirubin, Urine Neg (Neg); Glucose Qualitative, Urine Neg (Neg); Ketones, Urine Neg (Neg); Leukocyte Esterase, Urine 3+ (Neg); Protein, Urine 2+ (Neg); Specific Gravity, Urine 1.005 (1.003-1.022); Urobilinogen, Urine NORM (Normal)
[2025-05-10 23:31] LABS: Color, Urine Pale Yellow (P-Yellow)
[2025-05-10 23:33] LABS: White Blood Cells, Urine TNTC /hpf (0-5)
[2025-05-10] MEDS ORDERED: CefTRIAXone Sodium 1,000 MG in NS 100 ML IV ONE (23:50)
[2025-05-10] MEDS ORDERED: Darbepoetin (Pharmacy Consult) SC SCH (23:55)
[2025-05-11] MEDS ORDERED: NS 1,000 ML IV SCH (00:45)
[2025-05-11] MEDS ORDERED: FentaNYL Citrate 50 MCG/ML 2 ML Injection IV ONE ×2 (01:05→06:00)
[2025-05-11] MEDS ORDERED: Ondansetron HCl 2 MG / ML 2ML Vial IV PRN (01:45)
[2025-05-11] MEDS ORDERED: FLU VACC TS2025-26(6MOS UP)/PF 45 MCG/0.5 ML SYRINGE IM SCH (01:45)
[2025-05-11] MEDS ORDERED: Naloxone HCl 0.4MG / ML 1ML Vial IV PRN (01:45)
[2025-05-11] MEDS ORDERED: HydrALAZINE HCl 20 MG / ML 1ML Vial IV PRN (01:50)
[2025-05-11] MEDS ORDERED: FentaNYL Citrate 50 MCG/ML 2 ML Injection IV PRN ×2 (01:50→06:00)
[2025-05-11] MEDS ORDERED: Ampicillin Sodium 2000MG Vial IV SCH (02:00)
[2025-05-11] MEDS ORDERED: Ampicillin Sod 2,000 MG in NS 100 ML IV SCH (02:01)
[2025-05-11 03:52] VITALS: BP 148/69
[2025-05-11 04:50] LABS: BASOPHILS ABSOLUTE AUTO 0.06 K/mm3 (0.00-0.23); BASOPHILS PERCENT AUTO 0 % (0-2); EOSINOPHILS ABSOLUTE AUTO 0.11 K/mm3 (0.00-0.68); EOSINOPHILS PERCENT AUTO 1 % (0-6); Hematocrit 33.7 % (37.0-53.0); Hemoglobin 11.1 g/dL (13.5-17.5); IMMATURE GRAN ABSOLUTE AUTO 0.07 K/mm3 (0.00-0.10); IMMATURE GRAN PERCENT AUTO 1 % (0-1); LYMPHOCYTES ABSOLUTE AUTO 0.88 K/mm3 (0.84-5.20); LYMPHOCYTES PERCENT AUTO 6 % (21-46); MONOCYTES ABSOLUTE AUTO 0.96 K/mm3 (0.16-1.47); MONOCYTES PERCENT AUTO 7 % (4-13); Mean Corpuscular HGB Conc 32.9 g/dL (31.5-36.5); Mean Corpuscular Volume 85 fL (80-100); NEUTROPHILS ABSOLUTE AUTO 12.08 K/mm3 (1.96-9.15); NEUTROPHILS PERCENT AUTO 85 % (41-73); NRBC ABSOLUTE 0.00 K/mm3 (0.00-0.02); NRBC Auto 0.0 /100 WBC (0.0-0.2); Platelet Count 406 K/mm3 (150-400); RDW Coefficient Variation 16.3 % (11.7-14.2); RDW Standard Deviation 50.9 fL (35.1-46.3)
[2025-05-11 05:18] LABS: Albumin, Blood 3.0 g/dL (3.4-5.0); Anion Gap 11 mmol/L (3-11); Blood Urea Nitrogen 48 mg/dL (8-24); CO2, Blood 22 mmol/L (21-32); Calcium, Blood 8.7 mg/dL (8.5-10.1); Chloride, Blood 110 mmol/L (98-108); Creatinine, Blood 5.38 mg/dL (0.60-1.20); Glucose, Blood 139 mg/dL (70-99); Magnesium, Blood 2.8 mg/dL (1.6-2.4); Phosphorus, Blood 4.7 mg/dL (2.5-4.9); Potassium, Blood 4.3 mmol/L (3.5-5.5); Sodium, Blood 139 mmol/L (136-145)
--- NOTE | 2025-05-11 06:24 | NUR ---
SHIFT SUMMARY/ ADMIT NOTE PATIENT ADMITTED FOR ACUTE KIDNEY INJURY. PATIENT BROUGHT UP VIA STRETCHER AND TRANSFERED SELF TO BED. PATIENT IN EXTREME PAIN CALLING OUT AND SHAKING AND PINCHING THE CATHETER TUBE. PATIENT COMPLAINED OF BEING COLD, WAS PROVIDED WITH 2 WARM BLANKETS. PATIENT WAS COMPLAINING OF BEING THIRSTY PATIENT HAS QUICKLY DRANK 6 CUPS OF WATER AND JUICE AND IS STILL REQUESTIN MORE STATING "I WILL DRINK FROM THE FAUCET" PATIENT CONSTANTLY MOVING GETTING UP FROM BED, GETTING DOWN ON KNEES NEXT TO BED, ONTO THE BEDSIDE COMMODE AND BACK DOES NOT APPEAR STABLE ON FEET AND IS NOT USING CALL LIGHT FOR ASSISTANCE. PATIENT HAS HAD ONE BOWEL MOVEMENT ON THE FLOOR AND WAS YELLING "I POOPED ON THE FLOOR." WHEN ASKED IF PATIENT WOULD MOVE TO THE BED SIDE COMMODE PATIENT REFUSED STATING "I AM GOING TO SHIT OF THE FLOOR" CATHETER WAS REPOSITIONED AND SOON BALLOON WAS DEFLATED PATIENT STARTED YELLING OUT IN PAIN AND TRYED TO GRAB CATHETER. CATHETER STILL IN PLACE AND DRAINING PINK FLUID TO GRAVITY. PATIENT STILL COMPLINAING OF PAIN AND TRYING TO HAVE A BOWEL MOVEMENT. VITALS APPEAR STABLE ALTHOUGH DIFFICULT TO GET PATIENT TO SIT STILL LONG ENOUGH TO RUN A BLOOD PRESSURE. PATIENT MEDICATED PER EMAR. BED IN LOWEST POSITION FOR SAFETY. CALL LIGHT WITHIN REACH. BED RAILS UP X2.
[2025-05-11] MEDS ORDERED: HYDROmorphone HCl/Pf 1MG SYR IV PRN (08:20)
[2025-05-11] MEDS ORDERED: Lactobacil 2-S.Thermo-Bifido 1 1 Cap PO SCH (09:00)
[2025-05-11] MEDS ORDERED: Polyethylene Glycol 3350 17 gm PO SCH (09:00)
[2025-05-11] MEDS ORDERED: Lidocaine 2% Jelly Uro-Jet UR ONE (09:00)
[2025-05-11] MEDS ORDERED: Enoxaparin 30 MG/0.3 ML SYR SC SCH (09:00)
[2025-05-11 11:45] VITALS: BP 108/76
[2025-05-11 15:41] VITALS: BP 118/58
--- NOTE | 2025-05-11 16:51 | NUR ---
SHIFT SUMMARY PATIENT YELLING OUT AND UNABLE TO FIND A COMFORTABLE POSITION. PATIENT VERBALIZING BLADDER SPASMS AND CRAMPING AT START OF SHIFT. PATIENT REQUESTING TO TAKE A SHOWER TO HELP WITH PAIN. PATIENT ABLE TO AMBULATE TO BATHROOM AND STOOD IN SHOWER FOR ABOUT AN HOUR. DR ROOT CONTACTED AT START OF SHIFT AND UPDATED RELATED TO PATIENTS CONDITION. NEW ORDERS PROVIDED FOR BLADDER SPASMS AND PAIN. NEW CATHETER PLACED FOR BLADDER IRRIGATION BECAUSE OF BLOODY URINE AND CLOTS IN CURRENT PARKER. AFTER MULTIPLE DOSES OF PAIN MEDS AND VALIUM, PATIENT WAS ABLE TO REST. PATIENT ADMITS TO USING METH AND LAST USED ABOUT 3 DAYS AGO. EDUCATED PATIENT ON THE CHALLENGE OF MANAGING HIS PAIN BECAUSE OF HIS HX OF DRUG USE. PATIENT VERBALIZED UNDERSTANDING. BLADDER IRRIGATION CONTINUED THROUGHOUT THE DAY. URINE PINK AT TIMES. NO CLOTS SEEN DURING END OF SHIFT. PATIENT ABLE TO SLEEP AT TIMES AND EVEN JOKING WITH STAFF. PATIENT STATES PAIN DOWN TO A 6-7 WITH CURRENT PAIN MANAGEMENT.
[2025-05-11 20:27] VITALS: BP 117/57
[2025-05-11] MEDS ORDERED: CefTRIAXone Sodium 1,000 MG in NS 100 ML IV SCH (21:00)
[2025-05-11 23:43] VITALS: BP 144/61
[2025-05-12 03:51] VITALS: BP 134/81
--- NOTE | 2025-05-12 06:22 | NUR ---
SHIFT SUMMARY PATIENT ADMITTED FOR ACUTE KIDNEY INJURY. ALERT AND ORIENTED X4, ABLE TO MAKE NEEDS KNOWN. PATIENT HAS BEEN EXTREMELY THIRSTY AND REQUESTING A DRINK ANY TIME STAFF IS IN THE ROOM. PATIENT IS ON A 1500ML FLUID RESTRICTION AT THIS TIME. PATIENT HAD TOTAL INPUT OF 1314.80ML IN IV FLUIDS, APPROXIMATELY 1200ML IN DRINKS, AND 2400ML FROM CBI. PATIENTS TOTAL OUTPUT FROM CATHETER WAS 9200ML. AFTER SUBTRACTING THE CBI AMOUNT THAT MAKES 7800 OF TOTAL URINE OUTPUT. PATIENT MEDICATED FOR PAIN THROUGHOUT THE SHIFT. PATIENT APPEARS CALM AT THIS TIME. BED RAILS UP X2. CALL LIGHT WITHIN REACH. BED IN LOWEST POSITION FOR SAFETY.
[2025-05-12] MEDS ORDERED: NS 1,000 ML IV SCH (07:40)
[2025-05-12 07:59] VITALS: BP 133/72
[2025-05-12 08:06] LABS: Albumin, Blood 2.7 g/dL (3.4-5.0); Anion Gap 7 mmol/L (3-11); Blood Urea Nitrogen 40 mg/dL (8-24); CO2, Blood 26 mmol/L (21-32); Calcium, Blood 8.9 mg/dL (8.5-10.1); Chloride, Blood 114 mmol/L (98-108); Creatinine, Blood 2.99 mg/dL (0.60-1.20); Glucose, Blood 93 mg/dL (70-99); Magnesium, Blood 2.5 mg/dL (1.6-2.4); Phosphorus, Blood 4.5 mg/dL (2.5-4.9); Potassium, Blood 4.1 mmol/L (3.5-5.5); Sodium, Blood 143 mmol/L (136-145)
[2025-05-12 11:18] VITALS: BP 139/79
[2025-05-12 16:46] VITALS: BP 142/77
--- NOTE | 2025-05-12 18:30 | NUR ---
SHIFT SUMMARY PATIENT ALERT AND INTERACTIVE. CBI DC'D THIS MORNING. PATIENT CONTINUES TO HAVE LARGE AMOUNTS OF URINE. NO CLOTS THROUGHOUT THE DAY. PATIENT AMBULATING IN ROOM AND TAKING A SHOWER AT END OF SHIFT. MEDICATING LESS FREQUENTLY FOR PAIN TODAY. DISCUSSED POSSIBLE DISCHARGE TOMORROW. PATIENT STATES THAT FAMILY ARE WILLING TO HELP HIM GET A HOTEL FOR A WEEK WHEN HE DISCHARGES SINCE HE IS UNHOUSED AT THIS TIME.
[2025-05-12 19:13] VITALS: BP 132/70
[2025-05-12 23:47] VITALS: BP 142/80
[2025-05-13 03:29] VITALS: BP 145/80
[2025-05-13 05:02] LABS: BASOPHILS ABSOLUTE AUTO 0.08 K/mm3 (0.00-0.23); BASOPHILS PERCENT AUTO 1 % (0-2); EOSINOPHILS ABSOLUTE AUTO 0.49 K/mm3 (0.00-0.68); EOSINOPHILS PERCENT AUTO 6 % (0-6); Hematocrit 33.1 % (37.0-53.0); Hemoglobin 10.8 g/dL (13.5-17.5); IMMATURE GRAN ABSOLUTE AUTO 0.04 K/mm3 (0.00-0.10); IMMATURE GRAN PERCENT AUTO 0 % (0-1); LYMPHOCYTES ABSOLUTE AUTO 2.41 K/mm3 (0.84-5.20); LYMPHOCYTES PERCENT AUTO 27 % (21-46); MONOCYTES ABSOLUTE AUTO 0.91 K/mm3 (0.16-1.47); MONOCYTES PERCENT AUTO 10 % (4-13); Mean Corpuscular HGB Conc 32.6 g/dL (31.5-36.5); Mean Corpuscular Volume 84 fL (80-100); NEUTROPHILS ABSOLUTE AUTO 5.01 K/mm3 (1.96-9.15); NEUTROPHILS PERCENT AUTO 56 % (41-73); NRBC ABSOLUTE 0.00 K/mm3 (0.00-0.02); NRBC Auto 0.0 /100 WBC (0.0-0.2); Platelet Count 398 K/mm3 (150-400); RDW Coefficient Variation 16.2 % (11.7-14.2); RDW Standard Deviation 49.6 fL (35.1-46.3)
[2025-05-13 05:17] LABS: Albumin, Blood 2.9 g/dL (3.4-5.0); Anion Gap 11 mmol/L (3-11); Blood Urea Nitrogen 31 mg/dL (8-24); CO2, Blood 23 mmol/L (21-32); Calcium, Blood 8.7 mg/dL (8.5-10.1); Chloride, Blood 109 mmol/L (98-108); Creatinine, Blood 1.80 mg/dL (0.60-1.20); Glucose, Blood 108 mg/dL (70-99); Magnesium, Blood 2.1 mg/dL (1.6-2.4); Phosphorus, Blood 4.3 mg/dL (2.5-4.9); Potassium, Blood 3.9 mmol/L (3.5-5.5); Sodium, Blood 139 mmol/L (136-145)
--- NOTE | 2025-05-13 06:37 | NUR ---
SHIFT SUMMARY PATIENT ADMITTED FOR ACUTE KIDNEY INJURY. ALERT AND ORIENTED X4. VSS ABLE TO MAKE NEEDS KNOWN. PARKER CATHETER PATENT DRAINING LIGHT YELLOW URINE. PATIENT STILL REQUESTS FLUIDS AND SNACKS MULTIPLE TIMES A NIGHT. PATIENT HAS DIFFICULTY MAINTAINING FLUID RESTRICTION OF 1500ML. NO ACUTE OVERNIGHT EVENTS .PATIENT RESTING WITH EYES CLOSED, RESPIRATIONS EVEN AND UNLABORED. BED IN LOWEST POSITION FOR SAFETY. CALL LIGHT WITHIN REACH. BED RAILS UP X2.
[2025-05-13 07:32] VITALS: BP 151/88
--- NOTE | 2025-05-13 10:45 | NUR ---
ASSUMPTION OF CARE: ASSUMED CARE OF PATIENT. ASLEEP DURING SHIFT CHANGE REPORT. LYING IN BED ON RIGHT SIDE. BREATHING EVEN AND UNLABORED c ROOM AIR. PARKER PATENT AND DRAINING TO GRAVITY. MOST RECENT TELE STRIP IN CHART INTERPRETED SINUS. BED IN LOWEST POSITION. CALL LIGHT WITHIN REACH. ACUTE NEEDS MET.
[2025-05-13] MEDS ORDERED: Nicoderm Cq1 EAC1 TOP (11:48)
[2025-05-13] MEDS ORDERED: VISBIOME 112.51 EACH PO (11:48)
[2025-05-13] MEDS ORDERED: MIRALAX1714 PO (11:48)
[2025-05-13] MEDS ORDERED: DOCU100 PO (11:48)
[2025-05-13] MEDS ORDERED: CEPH500 PO (11:49)
[2025-05-13 12:17] LABS: GBM, IGG MULTIPLEX BEAD ASSAY 0 AU/mL (0-19); MYELOPEROXIDASE (MPO) AB,IGG 0 AU/mL (0-19); SERINE PROTEINASE 3 PR3 AB,IGG 2 AU/mL (0-19)
--- NOTE | 2025-05-13 12:23 | NUR ---
DISCHARGE SUMMARY: A&Ox4. CALLS APPROPRIATELY AND IS ABLE TO ADVOCATE NEEDS EFFECTIVELY. AMBULATES. CONTINENT OF BOWEL; LBM 05/13/25. MEDS PO. TELE SINUS. PAIN CONTROLLED. PT ANXIOUS TO DC AND LEFT BEFORE RECEIVING DC INSTRUCTIONS. MED REC FAXED TO [facility]. FOLLOW-UP SCHEDULED c PCP BUT PT DID NOT RECEIVE INFO ABOUT F/U D/T LEAVING BEFORE BEING GIVEN DC PACKET. TELE AND IV REMOVED AND PRESSURE DRESSING PLACED BY ELECTRONIC PUBLISHER. LEFT FLOOR WITH ALL BELONGINGS BUT NO DISCHARGE PACKET D/T LACK OF ABILITY/WILLINGNESS TO WAIT FOR PRINTER TO FINISH. TRANSPORTATION PROVIDED BY PARENTS VIA POV.
[2025-05-13 19:50] LABS: ANTINUCLEAR AB (ANA),HEP-2,IGG <1:80 (<1:80)
== END 2025-05-13 12:10 | disposition home health service (06) | DRG 872 ==
LOC: ER 19:53 → MEDS 05-11 01:41 → ENPENDDIS 05-13 11:22 → MEDS 05-13 12:10
PROVIDERS: Emergency Medicine; Family Medicine; Internal Medicine Nephrology; ADMIT Student in an Organized Health Care Education/Training Program
PROC: 3E03329 Introduction of Other Anti-infective into Peripheral Vein, Percutaneous Approach (ICD-10-PCS; 2025-05-10)
PROC: 0T9B70Z Drainage of Bladder with Drainage Device, Via Natural or Artificial Opening (ICD-10-PCS; principal; 2025-05-11)
DX: A41.9 Sepsis, unspecified organism (principal); N17.9 Acute kidney failure, unspecified; N13.6 Pyonephrosis; I50.22 Chronic systolic (congestive) heart failure; I13.0 Hypertensive heart and chronic kidney disease with heart failure and stage 1 through stage 4 chronic kidney disease, or unspecified chronic kidney disease; E87.1 Hypo-osmolality and hyponatremia; N32.0 Bladder-neck obstruction; K59.09 Other constipation; F15.11 Other stimulant abuse, in remission; D63.1 Anemia in chronic kidney disease; N18.9 Chronic kidney disease, unspecified; F17.210 Nicotine dependence, cigarettes, uncomplicated; E88.09 Other disorders of plasma-protein metabolism, not elsewhere classified; E86.9 Volume depletion, unspecified; N32.89 Other specified disorders of bladder; F06.4 Anxiety disorder due to known physiological condition; Z87.440 Personal history of urinary (tract) infections
CPT/HCPCS: 36415; 51702; 51798; 74176; 80053; 80069; 81001; 82550; 83516; 83605; 83735; 85025; 86039; 86334; 86335; 87040; 87428-QW; 93005; 93010; 94762; 96361; 96365-59; 96375; 96376-59; 99284-25; A9270; J0290; J0696; J1171; J1650; J3010; J7030